=== PATIENT | male | born 1965 | race Caucasian/White ===

== ENCOUNTER 2019-01-24 15:24 | Inpatient (IN) ==
[2019-01-24] MEDS ORDERED: PIPERACILL/TAZOBAC CONSULT ACTIVE PRN (15:51)
[2019-01-24] MEDS ORDERED: PIPERACILLIN/TAZOBACTAM 4.5 GM/120 ML BAG IV ONE (15:51)
[2019-01-24] MEDS ORDERED: VANCOMYCIN HCL 2,750 MG in SODIUM CHLORIDE 0.9% 500 ML IV ONE (15:51)
[2019-01-24] MEDS ORDERED: VANCOMYCIN CONSULT ACTIVE PRN (15:51)
[2019-01-24 16:34] LABS: Basophils # (auto) 0.04 K/uL (0-0.2); Basophils % (auto) 0.7 %; Eosinophils # (auto) 0.12 K/uL (0-0.5); Hemoglobin 12.4 g/dL (14.0-18.0); Immature Granulocytes # (auto) 0.01 K/uL (0.00-0.02); Immature Granulocytes % (auto) 0.2 %; Lymphocytes # (auto) 1.05 K/uL (1.2-3.4); Lymphocytes % (auto) 17.9 %; Mean Corpuscular Hemoglobin 29.8 pg (25-34); Mean Corpuscular Hgb Conc 35.4 g/dL (32-36); Mean Corpuscular Volume 84.1 fL (80-100); Mean Platelet Volume 10.5 fL (7.4-10.4); Monocytes # (auto) 0.23 K/uL (0.11-0.59); Monocytes % (auto) 3.9 %; Neutrophils # (auto) 4.41 K/uL (1.4-6.5); Neutrophils % (auto) 75.3 %; Platelet Count 164 K/uL (130-400); RDW Coefficient of Variation 12.5 % (11.5-14.5); RDW Standard Deviation 38.3 fL (36.4-46.3); Red Blood Count 4.16 M/uL (4.7-6.1); White Blood Count 5.86 K/uL (4.8-10.8)
[2019-01-24 16:43] LABS: INR 1.1 (0.9-1.1); Partial Thromboplastin Time 28.1 Seconds (21.0-31.0); Prothrombin Time 11.1 Seconds (9.0-12.0)
--- NOTE | 2019-01-24 16:47 | XRay Report ---
XR chest 1V portable CLINICAL HISTORY: Sepsis COMPARISON STUDY: Chest radiograph June 08, 2015. FINDINGS: Lung volumes are normal. Lungs are clear. There is no pneumothorax or pleural effusion. Car diomediastinal silhouette is stable. Mediastinal contours are normal. There is no evidence for pulmon dave edema. Mild elevation of the right hemidiaphragm is unchanged. IMPRESSION: No acute cardiopulmonary findings. No change in appearance of the chest. Electronically signed by: Brennen Wright M.D. 01/24/2019 4:46 PM
[2019-01-24 16:51] LABS: Albumin Level 4.2 gm/dl (3.4-5.0); BUN Creatinine Ratio 17.3 (10-20); Calcium 9.1 mg/dl (8.5-10.1); Creatinine Clr Calc Pharmacy 53.3 ml/min; Est GFR (African American) 40.5; Magnesium 1.9 mg/dl (1.8-2.4); Potassium 4.9 mmol/L (3.5-5.1)
[2019-01-24 17:13] LABS: Albumin Globulin Ratio 1.1 (0.9-2); Bilirubin,Total 1.5 mg/dl (0.2-1); Globulin 3.7 gm/dl (2.5-4.0); Phosphorus 2.5 mg/dl (2.5-4.9); Thyroid Stimulating Hormone 1.31 uIu/ml (0.300-4.500); Total Protein 7.9 gm/dl (6.4-8.2)
[2019-01-24] MEDS ORDERED: SODIUM CHLORIDE 0.9% 1000ML 1,000 ML IV ONE (17:23)
[2019-01-24] MEDS ORDERED: SODIUM CHLORIDE 0.9% 1000ML 1,000 ML IV SCH (17:30)
--- NOTE | 2019-01-24 19:20 | History & Physical Report ---
Date of Service January 24, 2019 Assessment & Plan (1) Hypothermia: Admit to PCU on telemetry Vital signs every 4 hours Continue monitoring CBC CMP and replenish electrolytes as necessary Continue fluid hydration with warm normal saline for hypothermia Continue bear hugger until patient temperature is normal Continue Zosyn IV empirically for hypothermia of possible exposure possible infectious. Vancomycin discontinued. Patient received 1 dose in the ER. DVT prophylaxis heparin 5000units every 12 hours. Full code Present on Admission?: Yes (2) CKD (chronic kidney disease), stage III: CKD stage IIIa Continue monitoring creatinine and GFR It is not clear if this is acute on chronic or chronic only CKD Avoid nephrotoxic agents Continue IV fluid hydration for dehydration Present on Admission?: Yes (3) Anemia: Anemia could be related to chronic kidney disease. Iron studies pending Depends on the results of iron studies consider starting iron with vitamin C. We will check B12 and folate as well. Present on Admission?: Yes (4) HTN (hypertension): Stable. Continue amlodipine 10 mg tablets p.o. daily nightly, continue aspirin 81 p.o. daily, continue carvedilol 12.5 mg tablet twice daily. Continue lisinopril 20 mg p.o. every morning. Continue torsemide 10 mg p.o. every morning. Monitor blood pressure every 4 hours. Present on Admission?: Yes (5) DM type 2 (diabetes mellitus, type 2): Continue home medicine. A1c pending. Glycemic control per pharmacy. Present on Admission?: Yes (6) Hyperlipidemia: Fasting lipid panel pending. Continue atorvastatin 40 mg p.o. nightly. Present on Admission?: Yes History of Present Illness Chief Complaint: Hypothermia Primary Care Provider: Akash Donaldson MD Patient is a 54 years old male with past medical history of hypertension, coronary artery disease, hyperlipidemia, CKD stage III diabetes mellitus type 2 who present to the emergency room with a complaint of feeling chills and generalized weakness. Patient was outside whole day long and he said he was sweating and due to low temperature and being for prolonged time outside he believe he was exposed and that is why his temperature on the arrival to the ER was 33 Celsius. Patient does not have any other complaints except for being very cold having chills. Patient denies chest pain, shortness of breath, frequency, urgency, cough, hematemesis, hematuria, or dysuria. Labs are reviewed and white blood cell count is 5.86, hemoglobin 12.4, hematocrit 35, platelets 164, PT 11.1, INR 1.1, APTT 28.1. Resume 138, potassium 4.9, chloride 108, BUN 36, creatinine 2.06, GFR 35, glucose 293, lactate 1.6, total bili 1.5, AST 22 ALT 30 TSH 1.3. Urine analysis pending, BNP pending. Chest x-rays: No acute cardia pulmonary findings. Decision was made to admit patient for hypothermia to PCU telemetry for further evaluation and management. Allergies Allergy/AdvReac Type Severity Reaction Status Date / Time No Known Allergies Allergy Unverified 01/24/19 17:01 Home Medications Home Medications Medication Instructions Recorded Confirmed Type amlodipine 10 mg tablet 10 mg PO HS tab 10/31/18 01/24/19 History aspirin 81 mg tablet,delayed 81 mg PO Q2D tab 10/31/18 01/24/19 History release atorvastatin 40 mg tablet 40 mg PO HS #90 tab 10/31/18 01/24/19 History blood sugar diagnostic strips #10 ea 10/31/18 01/24/19 History carvedilol 12.5 mg tablet 12.5 mg PO BID tab 10/31/18 01/24/19 History cholecalciferol (vitamin D3) 2,000 2,000 units PO QAM #30 cap 10/31/18 01/24/19 History unit capsule lancets 28 gauge #25 ea 10/31/18 01/24/19 History lisinopril 20 mg tablet 20 mg PO QAM #90 tab 10/31/18 01/24/19 History potassium citrate ER 10 mEq (1,080 20 meq PO TID tab 10/31/18 01/24/19 History mg) tablet,extended release torsemide 10 mg tablet 10 mg PO QAM tab 10/31/18 01/24/19 History insulin aspart (U-100) 100 unit/mL 10 unit SQ TID #15 ml 01/20/19 01/24/19 Rx (3 mL) subcutaneous pen pen needle, diabetic 32 gauge x #150 ea 01/20/19 01/24/19 Rx 5/32" insulin degludec [Tresiba 15 units SQ HS 01/24/19 01/24/19 History FlexTouch U-100] Past Med/Surg History Medical History HTN (hypertension) (Chronic) Sepsis (Acute) DM type 2 (diabetes mellitus, type 2) (Chronic) Hyperlipidemia (Chronic) CKD (chronic kidney disease), stage III (Chronic) Family History Other No pertinent family history in first degree relatives Social History Feels Safe at Home: Yes Smoking Status: Never smoker Review of Systems Review of Systems: All systems reviewed & are unremarkable except as noted in HPI & below Physical Exam Constitutional: WD/WN, vitals as above well developed and + obese Hypothermic temperature 33 Celsius Eyes: PERRL, conjunctivae normal, anicteric sclerae ENMT: external ear and nose normal, oropharynx normal Neck: trachea midline, no thyromegaly Respiratory: normal respiratory effort, lungs clear to auscultation Cardiovascular: RRR, no murmur, no edema Gastrointestinal (Abdomen): normal bowel sounds, soft, nontender, no hepatosplenomegaly Musculoskeletal: no cyanosis or clubbing, extremities motor strength 5/5 Skin: no rashes, warm and dry Neurologic: patellar DTR's 2+ bilat, sensation intact Psychiatric: A+Ox3, euthymic affect Lymphatic: no cervical or axillary lymphadenopathy Results & Data Vital Signs (Past 12 Hours) Vital Signs Temp Pulse Pulse Resp BP BP Pulse Ox 01/24/19 18:30 35.6 C L 64 20 119/68 98 01/24/19 17:20 62 18 135/59 L 98 01/24/19 17:19 95 01/24/19 17:17 34.6 C L 01/24/19 15:25 33.5 C L 67 18 109/59 L 98 Code Status & VTE Plan Code Status Full code VTE Prophylaxis Plan VTE Prophylaxis will be ordered: Yes PG Care Time/CCT Total # of Minutes Spent Total Time Spent with Patient: Total time spent is greater than 50% in coordination of care (as documented) at patient's floor/unit and/or counseling patient: (1) Hypothermia Encounter type: initial encounter Qualified Code(s): T68.XXXA - Hypothermia, initial encounter (2) Anemia Anemia type: unspecified type Qualified Code(s): D64.9 - Anemia, unspecified
[2019-01-24 20:38] LABS: Appearance Urine Clear (Clear); Bilirubin Urine Negative (Negative); Blood Urine Negative (Negative); Color Urine Yellow; Glucose Urine UA 3+ (Negative); Ketones Urine Negative (Negative); Leukocyte Esterase Urine Negative (Negative); Nitrite Urine Negative (Negative); Protein Urine Negative (Negative); Specific Gravity Urine 1.022 (1.000-1.030); Urobilinogen Urine Negative (Negative)
--- NOTE | 2019-01-24 21:10 | Emergency Department Note ---
Entered by Margarita Sargent acting as a scribe for Carlton Prince MD History of Present Illness General Chief complaint: Illness Stated complaint: WEAKNESS, DIZZY Time Seen by Provider: 01/24/19 15:44 Source: patient History of Present Illness Onset (ago): hour(s) (this morning) Location: head (general) Pain Consistency: + other (persistent) Quality: + other (chills) Associated symptoms: + other (negative leg swelling; negative difficulties with bowel movements and urination); no cough, no fever/chills (positive chills) and no nausea/vomiting The patient is a 54 year old white male w/ PMHx of HTN, Type 2 diabetes, and CKD stage III who presents to the ED w/ CC of persistent chills beginning this morning. He states that he has some left-sided chest pain. The patient's states that the patient was outside all day so far today and his clothes were wet. Per the patient's , the patient had an episode of sweating which was believed to be due to taking his Novolog that he began last week. The patient's denies fever, cough, nausea, vomiting, leg swelling, and difficulties with bowel movements and urination. The patient denies any recent antibiotic use. He states that he has been taking his medications. Home Medications Home Medications Medication Instructions Recorded Confirmed Type amlodipine 10 mg tablet 10 mg PO HS tab 10/31/18 01/24/19 History aspirin 81 mg tablet,delayed 81 mg PO Q2D tab 10/31/18 01/24/19 History release atorvastatin 40 mg tablet 40 mg PO HS #90 tab 10/31/18 01/24/19 History blood sugar diagnostic strips #10 ea 10/31/18 01/24/19 History carvedilol 12.5 mg tablet 12.5 mg PO BID tab 10/31/18 01/24/19 History cholecalciferol (vitamin D3) 2,000 2,000 units PO QAM #30 cap 10/31/18 01/24/19 History unit capsule lancets 28 gauge #25 ea 10/31/18 01/24/19 History lisinopril 20 mg tablet 20 mg PO QAM #90 tab 10/31/18 01/24/19 History potassium citrate ER 10 mEq (1,080 20 meq PO TID tab 10/31/18 01/24/19 History mg) tablet,extended release torsemide 10 mg tablet 10 mg PO QAM tab 10/31/18 01/24/19 History insulin aspart (U-100) 100 unit/mL 10 unit SQ TID #15 ml 01/20/19 01/24/19 Rx (3 mL) subcutaneous pen pen needle, diabetic 32 gauge x #150 ea 01/20/19 01/24/19 Rx " insulin degludec [Tresiba 15 units SQ HS 01/24/19 01/24/19 History FlexTouch U-100] Allergies Allergy/AdvReac Type Severity Reaction Status Date / Time No Known Allergies Allergy Unverified 01/24/19 17:01 Past Med/Surg History Medical History HTN (hypertension) (Chronic) Sepsis (Acute) DM type 2 (diabetes mellitus, type 2) (Chronic) Hyperlipidemia (Chronic) CKD (chronic kidney disease), stage III (Chronic) Family History Other No pertinent family history in first degree relatives Social History Preferred Language: Armenian Communication Ability: Effective Paratransit Driver Required: No Beliefs That Will Affect Care: None Current Living Situation: Family Feels Safe at Home: Yes Smoking Status: Current every day smoker Tobacco Type: smokeless tobacco ; Second Hand Exposure: No ; Hx Alcohol Use: Yes Alcohol type: beer, wine and hard liquor Hx Substance Use: No Review of Systems See HPI for pertinent positives & negatives. and A total of 10 systems reviewed and were otherwise negative Physical Exam Vital Signs Vital Signs - 24 hr 01/24/19 15:25 01/24/19 17:17 01/24/19 17:19 Temperature 33.5 C L 34.6 C L Temperature Source Rectal Rectal Sepsis Recent Fever Within 48 Hours No Sepsis New/Unexplained Change in Mental Status No Sepsis Action Taken by Nursing No Action Required Pulse Rate 67 Pulse Rate [Left] Pulse Rhythm [Left] Respiratory Rate 18 Respiratory Effort / Characteristics Non-Labored Respiratory Depth Normal Respiratory Pattern Regular Blood Pressure 109/59 L Blood Pressure [Left Arm] Blood Pressure Mean 75 Blood Pressure Mean [Left Arm] Pulse Oximetry 98 95 Oxygen Delivery Method Room Air Room Air 01/24/19 17:20 01/24/19 18:30 Temperature 35.6 C L Temperature Source Rectal Sepsis Recent Fever Within 48 Hours Sepsis New/Unexplained Change in Mental Status Sepsis Action Taken by Nursing Pulse Rate Pulse Rate [Left] 62 64 Pulse Rhythm [Left] Regular Respiratory Rate 18 20 Respiratory Effort / Characteristics Non-Labored Non-Labored Respiratory Depth Normal Normal Respiratory Pattern Regular Regular Blood Pressure Blood Pressure [Left Arm] 135/59 L 119/68 Blood Pressure Mean Blood Pressure Mean [Left Arm] 84 85 Pulse Oximetry 98 98 Oxygen Delivery Method Room Air Room Air GENERAL: Well nourished, non-toxic. Rigors noted. EYE EXAM: Normal conjunctiva. PERRL, no anisocoria and EOM's grossly intact w/o pain. OROPHARYNX: Moist mucus membranes. Grossly normal dentition. NECK: Supple, no nuchal rigidity, no adenopathy, non-tender. no signs of meningismus. LUNGS: Clear to auscultation. Normal chest wall mechanics. HEART: NSR, no MRG. ABDOMEN: Abdomen soft, non-tender, normo-active bowel sounds, no masses, no rebound or guarding. BACK: No CVA TTP. SKIN: No rashes and no bruising. UPPER EXTREMITIES: Upper extremities are grossly normal. LOWER EXTREMITIES: No pitting edema. No calf pain. NEURO EXAM: A&O x3, cranial nerves II-XII grossly intact, normal speech, moves all 4 extremities on command w/o issue. Course 1547: Past medical records reviewed. The patient was evaluated in room C10. A complete history and physical exam was performed. 1820: I discussed the case with Dr. [facility] Hospitalist who accepts the patient for further evaluation. Administered Medications Sodium Chloride (Nss 1000ml) 1,000 mls @ 250 mls/hr IV .Q4H LOS Stop: 02/23/19 17:29 Last Admin: 01/24/19 17:45 Dose: 250 mls/hr Documented by: [id number] Discontinued Medications Vancomycin HCl 2,750 mg/ (Sodium Chloride) 555 mls @ 200 mls/hr IV NOW ONE Stop: 01/24/19 18:37 Last Infusion: 01/24/19 20:34 Dose: 0 mls/hr Documented by: [id number] Admin: 01/24/19 17:45 Dose: 200 mls/hr Documented by: [id number] Piperacillin Sod/Tazobactam Sod (Zosyn) 4.5 gm in 120 mls @ 240 mls/hr IV NOW ONE Stop: 01/24/19 16:20 Last Infusion: 01/24/19 17:22 Dose: 0 mls/hr Documented by: [id number] Admin: 01/24/19 16:50 Dose: 240 mls/hr Documented by: [id number] Sodium Chloride (Nss 1000ml) 1,000 mls @ 999 mls/hr IV .Q1H1M ONE Stop: 01/24/19 18:23 Last Infusion: 01/24/19 17:40 Dose: 0 mls/hr Documented by: [id number] Admin: 01/24/19 16:40 Dose: 999 mls/hr Documented by: [id number] Medical Decision Making Medical Records Attestation: I reviewed the patient's medical records. Home Medications Current Medication List: was personally reviewed by me Laboratory Data Attestation: I reviewed the patient's lab results. Result diagrams: 01/24/19 16:10 01/24/19 16:10 Lab Results 01/24/19 01/24/19 01/24/19 Range/Units 16:00 16:10 16:10 WBC 5.86 (4.8-10.8) K/uL RBC 4.16 L (4.7-6.1) M/uL Hgb 12.4 L (14.0-18.0) g/dL Hct 35.0 L (42-52) % MCV 84.1 (80-100) fL MCH 29.8 (25-34) pg MCHC 35.4 (32-36) g/dL RDW Std Deviation 38.3 (36.4-46.3) fL RDW Coeff of Sebastián 12.5 (11.5-14.5) % Plt Count 164 (130-400) K/uL MPV 10.5 H (7.4-10.4) fL Immature Gran % (Auto) 0.2 % Neut % (Auto) 75.3 % Lymph % (Auto) 17.9 % Trego % (Auto) 3.9 % Eos % (Auto) 2.0 % Baso % (Auto) 0.7 % Immature Gran # (Auto) 0.01 (0.00-0.02) K/uL Neut # (Auto) 4.41 (1.4-6.5) K/uL Lymph # (Auto) 1.05 L (1.2-3.4) K/uL Trego # (Auto) 0.23 (0.11-0.59) K/uL Eos # (Auto) 0.12 (0-0.5) K/uL Baso # (Auto) 0.04 (0-0.2) K/uL PT 11.1 (9.0-12.0) Seconds INR 1.1 (0.9-1.1) APTT 28.1 (21.0-31.0) Seconds PTT Ratio 1.0 Sodium (136-145) mmol/L Potassium (3.5-5.1) mmol/L Chloride (98-107) mmol/L Carbon Dioxide (21-32) mmol/L Anion Gap (3-11) BUN (7-18) mg/dl Creatinine (0.6-1.4) mg/dl Est Cr Clr Drug Dosing ml/min Est GFR ( Amer) Est GFR (Non-Af Amer) BUN/Creatinine Ratio (10-20) Glucose (70-99) mg/dl Lactate (0.4-2.0) mmol/L Calcium (8.5-10.1) mg/dl Phosphorus (2.5-4.9) mg/dl Magnesium (1.8-2.4) mg/dl Total Bilirubin (0.2-1) mg/dl AST (15-37) U/L ALT (12-78) U/L Alkaline Phosphatase (45-117) U/L Total Protein (6.4-8.2) gm/dl Albumin (3.4-5.0) gm/dl Globulin (2.5-4.0) gm/dl Albumin/Globulin Ratio (0.9-2) Procalcitonin < 0.05 (0-0.5) ng/ml TSH (0.300-4.500) uIu/ml 01/24/19 01/24/19 Range/Units 16:10 16:10 WBC (4.8-10.8) K/uL RBC (4.7-6.1) M/uL Hgb (14.0-18.0) g/dL Hct (42-52) % MCV (80-100) fL MCH (25-34) pg MCHC (32-36) g/dL RDW Std Deviation (36.4-46.3) fL RDW Coeff of Sebastián (11.5-14.5) % Plt Count (130-400) K/uL MPV (7.4-10.4) fL Immature Gran % (Auto) % Neut % (Auto) % Lymph % (Auto) % Trego % (Auto) % Eos % (Auto) % Baso % (Auto) % Immature Gran # (Auto) (0.00-0.02) K/uL Neut # (Auto) (1.4-6.5) K/uL Lymph # (Auto) (1.2-3.4) K/uL Trego # (Auto) (0.11-0.59) K/uL Eos # (Auto) (0-0.5) K/uL Baso # (Auto) (0-0.2) K/uL PT (9.0-12.0) Seconds INR (0.9-1.1) APTT (21.0-31.0) Seconds PTT Ratio Sodium 138 (136-145) mmol/L Potassium 4.9 (3.5-5.1) mmol/L Chloride 108 H (98-107) mmol/L Carbon Dioxide 24 (21-32) mmol/L Anion Gap 6.0 (3-11) BUN 36 H (7-18) mg/dl Creatinine 2.06 H (0.6-1.4) mg/dl Est Cr Clr Drug Dosing 53.3 ml/min Est GFR ( Amer) 40.5 Est GFR (Non-Af Amer) 35.0 BUN/Creatinine Ratio 17.3 (10-20) Glucose 293 H (70-99) mg/dl Lactate 1.6 (0.4-2.0) mmol/L Calcium 9.1 (8.5-10.1) mg/dl Phosphorus 2.5 (2.5-4.9) mg/dl Magnesium 1.9 (1.8-2.4) mg/dl Total Bilirubin 1.5 H (0.2-1) mg/dl AST 22 (15-37) U/L ALT 30 (12-78) U/L Alkaline Phosphatase 81 (45-117) U/L Total Protein 7.9 (6.4-8.2) gm/dl Albumin 4.2 (3.4-5.0) gm/dl Globulin 3.7 (2.5-4.0) gm/dl Albumin/Globulin Ratio 1.1 (0.9-2) Procalcitonin (0-0.5) ng/ml TSH 1.310 (0.300-4.500) uIu/ml Imaging Data Radiologist's Impression: Radiology results as stated below per my review and the radiologist's interpretation: XR chest 1V portable CLINICAL HISTORY: Sepsis COMPARISON STUDY: Chest radiograph June 08, 2015. FINDINGS: Lung volumes are normal. Lungs are clear. There is no pneumothorax or pleural effusion. Cardiomediastinal silhouette is stable. Mediastinal contours are normal. There is no evidence for pulmonary edema. Mild elevation of the right hemidiaphragm is unchanged. IMPRESSION: No acute cardiopulmonary findings. No change in appearance of the chest. Electronically signed by: Brennen Wright M.D. 01/24/2019 4:46 PM ECG Data Attestation: I personally reviewed and interpreted this ECG as follows: Indication: other (hypothermia) Rate (beats per minute): 59 Rhythm: sinus bradycardia Findings: + 1st degree AV block, + PVC, + Q waves (in aVF) and + left axis deviation Comparison ECG Date: from (10/30/14) Change: no significant change Blood Pressure Blood Pressure Findings: Elevated blood pressure Blood Pressure Disposition: further management by hospitalist YANNA Narrative The patient is a 54 year old white male w/ PMHx of HTN, Type 2 diabetes, and CKD stage III who presents to the ED w/ CC of persistent chills beginning this morning. Differential diagnosis: Etiologies such as viral syndrome, environmental exposure, severe hypothyroidism, otitis, pharyngitis, pneumonia, influenza, meningitis, urinary tract infection, sepsis, bacteremia, as well as others were entertained. Patient was seen and evaluated the bedside. The patient was complaining of chills. Patient does have rigors and was hypothermic on exam. The patient did have blood work completed lactate as well as blood and urine cultures. Urinalysis was also obtained along with an EKG. Patient's initial EKG shows questionable A. fib but no history of A. fib. Will reassess once the patient has less chills and rigors. Patient has normal white count. Trace anemia was present along with CKD which appears essentially baseline. Glucose is elevated but the patient is not gapped and the patient does not have a low bicarb. Not DKA. The patient's lactate is not elevated. The patient's pro-Jerzy is not eleva demetrius urinalysis is negative. Given that the patient likely had an exposure as the patient has been outdoors been wet is probably most likely cause but as he is currently not normothermic I believe he would benefit from observation at this time. Patient was admitted to the medicine service. Patient was counseled on tobacco cessation. I counseled patient on tobacco cessation for 5 minutes. Treatment options discussed and resources provided. Patient was not receptive. Impression & Plan Hypothermia, CKD (chronic kidney disease), stage III, Anemia, Environmental exposure Discharge Plan Visit Data *Final* Discharge Date/Time: 01/24/19 19:53 Chief Complaint: Illness Stated Complaint: WEAKNESS, DIZZY ED Provider: Carlton Prince Discharge Problem: Hypothermia, CKD (chronic kidney disease), stage III, Anemia, Environmental exposure Patient Disposition: Admitted As Inpatient Discharge Instructions Interventions: ED Discharge Assessment Last Done: 01/24/19 19:53 Discharge Problem: Hypothermia Qualifiers: Encounter type: initial encounter Qualified Code(s): T68.XXXA - Hypothermia, initial encounter Anemia Qualifiers: Anemia type: unspecified type Qualified Code(s): D64.9 - Anemia, unspecified The scribe's documentation has been prepared under my direction and personally reviewed by me in its entirety. I confirm that the note above accurately reflects all work, treatment, procedures, and medical decision making performed by me.
[2019-01-24] MEDS ORDERED: ALUMINUM/MAGNESIUM SUSP 30 ML UDC PO PRN (21:16)
[2019-01-24] MEDS ORDERED: DEXTROSE 50% 50 ML SYRINGE IV PRN (21:16)
[2019-01-24] MEDS ORDERED: MAGNESIUM HYDROXIDE SUSP 30 ML UDC PO PRN (21:16)
[2019-01-24] MEDS ORDERED: GLUCOSE 10 TABS/TUBE PO PRN (21:16)
[2019-01-24] MEDS ORDERED: ASPIRIN 81 MG ECTAB PO SCH (21:16)
[2019-01-24] MEDS ORDERED: ACETAMINOPHEN 325 MG TAB PO PRN (21:16)
[2019-01-24] MEDS ORDERED: ZOLPIDEM TARTRATE 5 MG TAB PO PRN (21:16)
[2019-01-24] MEDS ORDERED: ONDANSETRON INJ 2 MG/ML 2 ML VIAL IV PRN (21:16)
[2019-01-24] MEDS ORDERED: GLUCAGON FOR INJ 1 MG VIAL SQ PRN (21:16)
[2019-01-24] MEDS ORDERED: GLUCOSE 40% GEL 15 GM TUBE PO PRN (21:16)
[2019-01-24] MEDS ORDERED: POLYETHYLENE (MIRALAX) 17 GM PACK PO PRN (21:16)
[2019-01-24] MEDS ORDERED: CARBOHYDRATES FOR HYPOGLYCEMIA PO PRN (21:16)
[2019-01-24] MEDS ORDERED: PHARMACY GLYCEMIC MGMT CONSULT PRN (21:21)
[2019-01-24] MEDS: SODIUM CHLORIDE 0.9% 1000ML 1,000 ML IV SCH (21:36)
[2019-01-24] MEDS ORDERED: INSULIN GLARGINE SOLOSTAR 100 UNITS/ML 3 ML PEN SC SCH (22:00)
[2019-01-24] MEDS: ATORVASTATIN 40 MG TAB PO SCH (22:00)
[2019-01-24] MEDS: POTASSIUM CITRATE 10 MEQ TAB PO SCH (22:00)
[2019-01-24] MEDS: HEPARIN SOD 5,000 UNIT/0.5 ML VIAL SQ SCH (22:01)
[2019-01-24] MEDS: AMLODIPINE BESYLATE 5 MG TAB PO SCH (22:01)
[2019-01-24] MEDS: PIPERACILLIN/TAZOBACTAM 4.5 GM in DEXTROSE 5% 100 ML IV SCH (22:03)
[2019-01-24] MEDS: INSULIN ASPART 100 UNITS/ML 3 ML PEN SQ SCH (22:03)
[2019-01-25] MEDS ORDERED: INSULIN ASPART 100 UNITS/ML 3 ML PEN SQ SCH (02:00)
[2019-01-25] MEDS: PIPERACILLIN/TAZOBACTAM 4.5 GM in DEXTROSE 5% 100 ML IV SCH ×3 (06:06→21:43)
[2019-01-25 06:46] LABS: Basophils # (auto) 0.02 K/uL (0-0.2); Basophils % (auto) 0.4 %; Eosinophils % (auto) 5.4 %; Hematocrit (blood only) 31.1 % (42-52); Hemoglobin 10.7 g/dL (14.0-18.0); Immature Granulocytes # (auto) 0.01 K/uL (0.00-0.02); Immature Granulocytes % (auto) 0.2 %; Lymphocytes # (auto) 1.58 K/uL (1.2-3.4); Lymphocytes % (auto) 28.6 %; Mean Corpuscular Hemoglobin 29.7 pg (25-34); Mean Corpuscular Hgb Conc 34.4 g/dL (32-36); Mean Corpuscular Volume 86.4 fL (80-100); Mean Platelet Volume 10.5 fL (7.4-10.4); Monocytes # (auto) 0.57 K/uL (0.11-0.59); Monocytes % (auto) 10.3 %; Neutrophils # (auto) 3.04 K/uL (1.4-6.5); Neutrophils % (auto) 55.1 %; Platelet Count 150 K/uL (130-400); RDW Coefficient of Variation 12.8 % (11.5-14.5); RDW Standard Deviation 40.6 fL (36.4-46.3); White Blood Count 5.52 K/uL (4.8-10.8)
[2019-01-25 06:55] LABS: Estimated Average Glucose 240 mg/dl
[2019-01-25 07:24] LABS: Albumin Level 3.2 gm/dl (3.4-5.0); BUN Creatinine Ratio 14.8 (10-20); Calcium 8.3 mg/dl (8.5-10.1); Creatinine Clr Calc Pharmacy 55.9 ml/min; Est GFR (African American) 43.3; Est GFR (Non-African American) 37.4; Potassium 4.1 mmol/L (3.5-5.1)
[2019-01-25 07:27] LABS: Bilirubin,Total 1.4 mg/dl (0.2-1); Globulin 3.1 gm/dl (2.5-4.0); Total Protein 6.3 gm/dl (6.4-8.2)
[2019-01-25] MEDS: INSULIN ASPART 100 UNITS/ML 3 ML PEN SQ SCH ×4 (07:44→20:44)
[2019-01-25] MEDS: HEPARIN SOD 5,000 UNIT/0.5 ML VIAL SQ SCH ×2 (07:45→20:46)
[2019-01-25] MEDS: CHOLECALCIFEROL 1,000 UNITS TAB PO SCH (07:47)
[2019-01-25] MEDS: TORSEMIDE 10 MG TAB PO SCH (07:47)
[2019-01-25] MEDS: POTASSIUM CITRATE 10 MEQ TAB PO SCH ×3 (07:47→20:45)
[2019-01-25] MEDS: lisinopriL 20 MG TAB PO SCH (08:16)
[2019-01-25] MEDS ORDERED: carvediloL 12.5 MG TAB PO SCH (09:00)
--- NOTE | 2019-01-25 09:51 | Cardiology Consultation ---
Date of Consultation January 25, 2019 Assessment & Plan (1) DM type 2 (diabetes mellitus, type 2): (2) CKD (chronic kidney disease), stage III: (3) Anemia: (4) Hypothermia: (5) Bradycardia: The patient's hemoglobin A1c on admission is 10, so I do not believe that his diabetes is cared for well. It is possible that he could have been hypoglycemic but other causes should be considered. In regard to his bradycardia, he is on carvedilol and I will reduce the dosage. He should have cardiac troponins and an echocardiogram is warranted. History of Present Illness Attending Physician: Cesar Ann MD History of Present Illness This is a 54-year-old male patient with history of obesity, diabetes, stage III kidney disease and hypertension. Yesterday he was helping a suze paint the outside keith of a garage. He had several episodes of what he describes as chills, sweating and just not feeling well. He had a similar episode that occurred while he was in [place] at which time he had low blood glucose levels. He ate a candy bar and then went over to [facility] and got a hot dog. He still did not feel well and felt like his vision was off. He decided to go to [facility] and then was transferred here. After admission he has been feeling well. On the monitor however, his heart rates especially while he is sleeping down into the 30 bpm range. I been asked to see this patient for bradycardia. He has no prior history of heart disease and denies myocardial infarction, angina or congestive heart failure. He has had no syncope or presyncope other than the symptoms he had on the day of admission. He denies activity related chest pain or shortness of breath. Allergies Allergy/AdvReac Type Severity Reaction Status Date / Time No Known Allergies Allergy Unverified 01/24/19 17:01 Home Medications Home Medications Medication Instructions Recorded Confirmed Type amlodipine 10 mg tablet 10 mg PO HS tab 10/31/18 01/24/19 History aspirin 81 mg tablet,delayed 81 mg PO Q2D tab 10/31/18 01/24/19 History release atorvastatin 40 mg tablet 40 mg PO HS #90 tab 10/31/18 01/24/19 History blood sugar diagnostic strips #10 ea 10/31/18 01/24/19 History carvedilol 12.5 mg tablet 12.5 mg PO BID tab 10/31/18 01/24/19 History cholecalciferol (vitamin D3) 2,000 2,000 units PO QAM #30 cap 10/31/18 01/24/19 History unit capsule lancets 28 gauge #25 ea 10/31/18 01/24/19 History lisinopril 20 mg tablet 20 mg PO QAM #90 tab 10/31/18 01/24/19 History potassium citrate ER 10 mEq (1,080 20 meq PO TID tab 10/31/18 01/24/19 History mg) tablet,extended release torsemide 10 mg tablet 10 mg PO QAM tab 10/31/18 01/24/19 History insulin aspart (U-100) 100 unit/mL 10 unit SQ TID #15 ml 01/20/19 01/24/19 Rx (3 mL) subcutaneous pen pen needle, diabetic 32 gauge x #150 ea 01/20/19 01/24/19 Rx 5/32" insulin degludec [Tresiba 15 units SQ HS 01/24/19 01/24/19 History FlexTouch U-100] Patient History Medical History HTN (hypertension) (Chronic) Sepsis (Acute) DM type 2 (diabetes mellitus, type 2) (Chronic) Hyperlipidemia (Chronic) CKD (chronic kidney disease), stage III (Chronic) Family History Other No pertinent family history in first degree relatives Social History Preferred Language: Indonesian Communication Ability: Effective Director Talent Acquisition Required: No Beliefs That Will Affect Care: None Current Living Situation: Family Feels Safe at Home: Yes Smoking Status: Current every day smoker Tobacco Type: smokeless tobacco ; Second Hand Exposure: No ; Hx Alcohol Use: Yes Alcohol type: beer, wine and hard liquor Hx Substance Use: No Review of Systems Review of Systems: All systems reviewed & are unremarkable except as noted in HPI & below Nothing additional to add. Physical Exam Physical Exam: General: no acute distress and stated age Head: normocephalic, no masses, lesions, tenderness or abnormalities Eyes: conjunctiva are pink and non-injected, sclera clear Neck: supple, no adenopathy, no bruits, normal jugular venous pulse, no hepatojugular reflux Chest: normal shape and normal respiratory effort Lungs: clear to auscultation and percussion Cardiac Exam: - regular rate & rhythm, no murmurs gallops or rubs - normal S1, normal S2 Pulses: 2(+) throughout Abdomen: abdomen soft, non-tender, no abnormal masses and no hepatosplenomegaly Musculoskeletal: no gait disturbance, no joint inflammation, no deforming arthritis Extremities: no edema and no cyanosis Neuro: grossly normal exam Results & Data Vital Signs (Past 12 Hours) Vital Signs Temp Pulse Pulse Resp BP Pulse Ox 01/25/19 08:00 60 01/25/19 07:40 36.9 C 64 19 131/59 L 95 01/25/19 04:17 36.8 C 52 L 16 133/70 99 01/24/19 23:23 36.7 C 64 17 158/77 H 98 Laboratory Results Laboratory Results - last 24 hr 01/24/19 01/24/19 01/24/19 16:00 16:00 16:10 WBC 5.86 RBC 4.16 L Hgb 12.4 L Hct 35.0 L MCV 84.1 MCH 29.8 MCHC 35.4 RDW Std Deviation 38.3 RDW Coeff of [place] 12.5 Plt Count 164 MPV 10.5 H Immature Gran % (Auto) 0.2 Neut % (Auto) 75.3 Lymph % (Auto) 17.9 [place] % (Auto) 3.9 Eos % (Auto) 2.0 Baso % (Auto) 0.7 Immature Gran # (Auto) 0.01 Neut # (Auto) 4.41 Lymph # (Auto) 1.05 L [place] # (Auto) 0.23 Eos # (Auto) 0.12 Baso # (Auto) 0.04 PT INR APTT PTT Ratio Sodium Potassium Chloride Carbon Dioxide Anion Gap BUN Creatinine Est Cr Clr Drug Dosing Est GFR ( Amer) Est GFR (Non-Af Amer) BUN/Creatinine Ratio Glucose POC Glucose Estimat Average Glucose Hemoglobin A1c Lactate Calcium Phosphorus Magnesium Total Bilirubin AST ALT Alkaline Phosphatase NT-Pro-B Natriuret Pep Total Protein Albumin Globulin Albumin/Globulin Ratio Triglycerides Cholesterol LDL Cholesterol, Calc VLDL Cholesterol, Calc HDL Cholesterol Cholesterol/HDL Ratio Procalcitonin < 0.05 TSH Urine Color Urine Appearance Urine pH Ur Specific [place] Urine Protein Urine Glucose (UA) Urine Ketones Urine Blood Urine Nitrite Urine Bilirubin Urine Urobilinogen Ur Leukocyte Esterase Hepatitis C Ab Screen Neg 01/24/19 01/24/19 01/24/19 16:10 16:10 16:10 WBC RBC Hgb Hct MCV MCH MCHC RDW Std Deviation RDW Coeff of [place] Plt Count MPV Immature Gran % (Auto) Neut % (Auto) Lymph % (Auto) [place] % (Auto) Eos % (Auto) Baso % (Auto) Immature Gran # (Auto) Neut # (Auto) Lymph # (Auto) [place] # (Auto) Eos # (Auto) Baso # (Auto) PT 11.1 INR 1.1 APTT 28.1 PTT Ratio 1.0 Sodium 138 Potassium 4.9 Chloride 108 H Carbon Dioxide 24 Anion Gap 6.0 BUN 36 H Creatinine 2.06 H Est Cr Clr Drug Dosing 53.3 Est GFR ( Amer) 40.5 Est GFR (Non-Af Amer) 35.0 BUN/Creatinine Ratio 17.3 Glucose 293 H POC Glucose Estimat Average Glucose Hemoglobin A1c Lactate 1.6 Calcium 9.1 Phosphorus 2.5 Magnesium 1.9 Total Bilirubin 1.5 H AST 22 ALT 30 Alkaline Phosphatase 81 NT-Pro-B Natriuret Pep Total Protein 7.9 Albumin 4.2 Globulin 3.7 Albumin/Globulin Ratio 1.1 Triglycerides Cholesterol LDL Cholesterol, Calc VLDL Cholesterol, Calc HDL Cholesterol Cholesterol/HDL Ratio Procalcitonin TSH 1.310 Urine Color Urine Appearance Urine pH Ur Specific [place] Urine Protein Urine Glucose (UA) Urine Ketones Urine Blood Urine Nitrite Urine Bilirubin Urine Urobilinogen Ur Leukocyte Esterase Hepatitis C Ab Screen 01/24/19 01/24/19 01/24/19 16:10 20:16 20:33 WBC RBC Hgb Hct MCV MCH MCHC RDW Std Deviation RDW Coeff of [place] Plt Count MPV Immature Gran % (Auto) Neut % (Auto) Lymph % (Auto) [place] % (Auto) Eos % (Auto) Baso % (Auto) Immature Gran # (Auto) Neut # (Auto) Lymph # (Auto) [place] # (Auto) Eos # (Auto) Baso # (Auto) PT INR APTT PTT Ratio Sodium Potassium Chloride Carbon Dioxide Anion Gap BUN Creatinine Est Cr Clr Drug Dosing Est GFR ( Amer) Est GFR (Non-Af Amer) BUN/Creatinine Ratio Glucose POC Glucose 322 H* Estimat Average Glucose Hemoglobin A1c Lactate Calcium Phosphorus Magnesium Total Bilirubin AST ALT Alkaline Phosphatase NT-Pro-B Natriuret Pep 164 Total Protein Albumin Globulin Albumin/Globulin Ratio Triglycerides Cholesterol LDL Cholesterol, Calc VLDL Cholesterol, Calc HDL Cholesterol Cholesterol/HDL Ratio Procalcitonin TSH Urine Color Yellow Urine Appearance Clear Urine pH 5.0 Ur Specific [place] 1.022 Urine Protein Negative Urine Glucose (UA) 3+ H Urine Ketones Negative Urine Blood Negative Urine Nitrite Negative Urine Bilirubin Negative Urine Urobilinogen Negative Ur Leukocyte Esterase Negative Hepatitis C Ab Screen 01/25/19 01/25/19 01/25/19 00:41 02:03 06:14 WBC 5.52 RBC 3.60 L Hgb 10.7 L Hct 31.1 L MCV 86.4 MCH 29.7 MCHC 34.4 RDW Std Deviation 40.6 RDW Coeff of [place] 12.8 Plt Count 150 MPV 10.5 H Immature Gran % (Auto) 0.2 Neut % (Auto) 55.1 Lymph % (Auto) 28.6 [place] % (Auto) 10.3 Eos % (Auto) 5.4 Baso % (Auto) 0.4 Immature Gran # (Auto) 0.01 Neut # (Auto) 3.04 Lymph # (Auto) 1.58 [place] # (Auto) 0.57 Eos # (Auto) 0.30 Baso # (Auto) 0.02 PT INR APTT PTT Ratio Sodium Potassium Chloride Carbon Dioxide Anion Gap BUN Creatinine Est Cr Clr Drug Dosing Est GFR ( Amer) Est GFR (Non-Af Amer) BUN/Creatinine Ratio Glucose POC Glucose 206 H 202 H Estimat Average Glucose Hemoglobin A1c Lactate Calcium Phosphorus Magnesium Total Bilirubin AST ALT Alkaline Phosphatase NT-Pro-B Natriuret Pep Total Protein Albumin Globulin Albumin/Globulin Ratio Triglycerides Cholesterol LDL Cholesterol, Calc VLDL Cholesterol, Calc HDL Cholesterol Cholesterol/HDL Ratio Procalcitonin TSH Urine Color Urine Appearance Urine pH Ur Specific [place] Urine Protein Urine Glucose (UA) Urine Ketones Urine Blood Urine Nitrite Urine Bilirubin Urine Urobilinogen Ur Leukocyte Esterase Hepatitis C Ab Screen 01/25/19 01/25/19 01/25/19 06:14 06:14 06:16 WBC RBC Hgb Hct MCV MCH MCHC RDW Std Deviation RDW Coeff of [place] Plt Count MPV Immature Gran % (Auto) Neut % (Auto) Lymph % (Auto) [place] % (Auto) Eos % (Auto) Baso % (Auto) Immature Gran # (Auto) Neut # (Auto) Lymph # (Auto) [place] # (Auto) Eos # (Auto) Baso # (Auto) PT INR APTT PTT Ratio Sodium 143 Potassium 4.1 D Chloride 115 H Carbon Dioxide 21 Anion Gap 7.0 BUN 29 H Creatinine 1.95 H Est Cr Clr Drug Dosing 55.9 Est GFR ( Amer) 43.3 Est GFR (Non-Af Amer) 37.4 BUN/Creatinine Ratio 14.8 Glucose 101 H POC Glucose 106 H Estimat Average Glucose 240 Hemoglobin A1c 10.0 H Lactate Calcium 8.3 L Phosphorus Magnesium Total Bilirubin 1.4 H AST 15 ALT 23 Alkaline Phosphatase 60 NT-Pro-B Natriuret Pep Total Protein 6.3 L D Albumin 3.2 L Globulin 3.1 Albumin/Globulin Ratio 1.0 Triglycerides 72 Cholesterol 108 LDL Cholesterol, Calc 46 VLDL Cholesterol, Calc 14 HDL Cholesterol 48 Cholesterol/HDL Ratio 2 Procalcitonin TSH Urine Color Urine Appearance Urine pH Ur Specific [place] Urine Protein Urine Glucose (UA) Urine Ketones Urine Blood Urine Nitrite Urine Bilirubin Urine Urobilinogen Ur Leukocyte Esterase Hepatitis C Ab Screen 01/25/19 07:27 WBC RBC Hgb Hct MCV MCH MCHC RDW Std Deviation RDW Coeff of [place] Plt Count MPV Immature Gran % (Auto) Neut % (Auto) Lymph % (Auto) [place] % (Auto) Eos % (Auto) Baso % (Auto) Immature Gran # (Auto) Neut # (Auto) Lymph # (Auto) [place] # (Auto) Eos # (Auto) Baso # (Auto) PT INR APTT PTT Ratio Sodium Potassium Chloride Carbon Dioxide Anion Gap BUN Creatinine Est Cr Clr Drug Dosing Est GFR ( Amer) Est GFR (Non-Af Amer) BUN/Creatinine Ratio Glucose POC Glucose 111 H Estimat Average Glucose Hemoglobin A1c Lactate Calcium Phosphorus Magnesium Total Bilirubin AST ALT Alkaline Phosphatase NT-Pro-B Natriuret Pep Total Protein Albumin Globulin Albumin/Globulin Ratio Triglycerides Cholesterol LDL Cholesterol, Calc VLDL Cholesterol, Calc HDL Cholesterol Cholesterol/HDL Ratio Procalcitonin TSH Urine Color Urine Appearance Urine pH Ur Specific [place] Urine Protein Urine Glucose (UA) Urine Ketones Urine Blood Urine Nitrite Urine Bilirubin Urine Urobilinogen Ur Leukocyte Esterase Hepatitis C Ab Screen Medications Administered Current Inpatient Medications Acetaminophen (Tylenol) 650 mg PO Q4H PRN PRN Reason: Pain or Fever Stop: 02/23/19 21:15 Al Hydrox/Mg Hydrox/Simethicone (Maalox) 15 ml PO Q4H PRN PRN Reason: Dyspepsia Stop: 02/23/19 21:15 Amlodipine Besylate (Norvasc) 10 mg PO HS LOS Stop: 02/25/19 09:00 Last Admin: 01/24/19 22:01 Dose: 10 mg Documented by: Aspirin (Ecotrin Ectab) 81 mg PO Q2D LOS Stop: 02/23/19 21:15 Last Admin: 01/24/19 22:00 Dose: 81 mg Documented by: Atorvastatin Calcium (Lipitor) 40 mg PO HS LOS Stop: 02/23/19 21:15 Last Admin: 01/24/19 22:00 Dose: 40 mg Documented by: Carvedilol (Coreg) 6.25 mg PO BID LOS Stop: 02/24/19 20:59 Dextrose (Dextrose 50%) 25 - 50 ml IV UD PRN; Protocol PRN Reason: Hypoglycemia Protocol Stop: 02/23/19 21:15 Glucagon (Glucagen) 1 mg SQ UD PRN; Protocol PRN Reason: Hypoglycemia Protocol Stop: 02/23/19 21:15 Glucose (Glucose 40%) 15 - 30 gm PO UD PRN; Protocol PRN Reason: Hypoglycemia Protocol Stop: 02/23/19 21:15 Glucose (Dex4 Glucose) 4 - 8 tabs PO UD PRN; Protocol PRN Reason: Hypoglycemia Protocol Stop: 02/23/19 21:15 Heparin Sodium (Porcine) (Heparin Sodium (Porcine)) 5,000 units SQ Q12 LOS Stop: 02/23/19 21:59 Last Admin: 01/25/19 07:45 Dose: 5,000 units Documented by: Sodium Chloride (Nss 1000ml) 1,000 mls @ 80 mls/hr IV .[id number] LOS Stop: 02/23/19 21:15 Last Admin: 01/24/19 21:36 Dose: 80 mls/hr Documented by: Piperacillin Sod/Tazobactam (Sod 4.5 gm/ Dextrose) 120 mls @ 30 mls/hr IV Q8H LOS; Protocol Stop: 01/26/19 21:59 Last Admin: 01/25/19 06:06 Dose: 30 mls/hr Documented by: Insulin Aspart (Novolog Flexpen) 0 units SQ ACHS LOS Stop: 02/23/19 21:59 Last Admin: 01/25/19 07:44 Dose: 4 units Documented by: Insulin Glargine (Lantus Solostar Pen) 20 units SC HS LOS; Protocol Stop: 02/23/19 21:59 Last Admin: 01/24/19 22:02 Dose: 20 units Documented by: Lisinopril (Zestril) 20 mg PO QAM [facility] Stop: 02/24/19 08:59 Last Admin: 01/25/19 08:16 Dose: 20 mg Documented by: Magnesium Hydroxide (Milk Of Magnesia) 30 ml PO Q12H PRN PRN Reason: Constipation Stop: 02/23/19 21:15 Miscellaneous (Carbohydrates For Hypoglycemia) 15 - 30 gm PO UD PRN PRN Reason: Hypoglycemia Treatment Stop: 02/23/19 21:15 Miscellaneous Information (Consult) 1 ea N/A UD PRN PRN Reason: Consult Stop: 02/23/19 15:50 Miscellaneous Information (Consult Glycemic Management Pharmacy) 1 ea N/A UD PRN; Protocol PRN Reason: Consult Stop: 02/23/19 21:20 Ondansetron HCl (Zofran) 4 mg IV Q6H PRN PRN Reason: Nausea Stop: 02/23/19 21:15 Polyethylene Glycol (Miralax Powder Packet) 17 gm PO DAILY PRN PRN Reason: Constipation Stop: 02/23/19 21:15 Potassium Citrate (Urocit-K) 20 meq PO TID [facility] Stop: 02/23/19 21:15 Last Admin: 01/25/19 07:47 Dose: 20 meq Documented by: Torsemide (Demadex) 10 mg PO QAM [facility] Stop: 02/24/19 08:59 Last Admin: 01/25/19 07:47 Dose: 10 mg Documented by: Vitamin D (Vitamin D3) 2,000 units PO QAM [facility] Stop: 02/24/19 08:59 Last Admin: 01/25/19 07:47 Dose: 2,000 units Documented by: Zolpidem Tartrate (Ambien) 2.5 mg PO HS PRN PRN Reason: Sleep Stop: 02/23/19 21:15 (1) Anemia Anemia type: unspecified type Qualified Code(s): D64.9 - Anemia, unspecified (2) Hypothermia Encounter type: initial encounter Qualified Code(s): T68.XXXA - Hypothermia, initial encounter
[2019-01-25] MEDS: SODIUM CHLORIDE 0.9% 1000ML 1,000 ML IV SCH (11:49)
--- NOTE | 2019-01-25 13:13 | Pharmacy Report ---
Glycemic Control Consultation - Date of Service January 25, 2019 - Scope Scope: Glycemic Pharmacist consulted by Dr Marquez on 01/24 for glycemic control and to write orders per [facility] inpatient glycemic control protocol - Objective Weight: 117.3 kg Accuchecks BSG (last 24hrs): 01/24/19 01/24/19 01/25/19 16:10 20:33 00:41 Glucose 293 H POC Glucose 322 H* 206 H 01/25/19 01/25/19 01/25/19 02:03 06:14 06:16 Glucose 101 H POC Glucose 202 H 106 H 01/25/19 01/25/19 07:27 11:20 Glucose POC Glucose 111 H 137 H Laboratory Data (last 24hrs): 01/24/19 01/25/19 16:10 06:14 Potassium 4.9 4.1 D Carbon Dioxide 24 21 Anion Gap 6.0 7.0 Creatinine 2.06 H 1.95 H Est Cr Clr Drug Dosing 53.3 55.9 HbA1c: Hemoglobin A1c 10.0 % (4.5-5.6) H 01/25/19 06:14 - Recent Pertinent Medications Outpatient Anti-diabetic Regimen: * Tresiba 15 units qHS * Novolog 10 units with meals * A1c = 10 % 01/25/19 The patient is currently receiving: * Basal insulin: Lantus 20 units every 24 hours * Correctional Insulin: Novolog Correction per scale ACHS Goal Range: Low 110 mg/dL - High 150 mg/dL Correction Factor: 20 mg/dL/unit * Prandial insulin: Per carb ratio of 1 unit per 7 grams CHO consumed Risk Factors for Insulin Resistance: * Infection: * Diet: T2DM - Assessment & Plan Assessment & Plan: ASSESSMENT: * 54 y/o male admitted for hypothermia. He has a history of T2DM, uncontrolled as per A1c. He is managed with basal + bolus insulin as an outpatient, which were substituted with Lantus + Novolog as an inpatient. * BSGs came down nicely since admission. Est TDD ~30-40 units/day. PLAN FOR INPATIENT GLYCEMIC CONTROL: * Basal insulin - provide scale for lower dose if BSGs remain low * Lantus qHS per the following scale: * 15 units for BSG < 110 mg/dL * 20 units for BSG 110 mg/dL or above * Bolus insulin - loosen parameters slightly * NovoLog per scale ACHS or Q6hrs while NPO * Goal Range: Low 110 mg/dL - High 150 mg/dL * Correction Factor: 25 mg/dL/unit * Nutritional / Prandial insulin per carb ratio of 1 unit per 9 grams CHO consumed Discharge Recommendations: * A1c = 10% on 01/25/19 * Goal A1c < 7% based on age/comorbidities * Will need to determine compliance prior to making recommendations for dosage adjustments Thank you.
--- NOTE | 2019-01-25 15:00 | Hospitalist Progress Note ---
Date of Service January 25, 2019 Assessment & Plan (1) Bradycardia: Bradycardia Hypothermia--Resolved Unclear etiology DD: Hypoglycemic episode CXR:No acute cardiopulmonary findings. No change in appearance of the chest. Cardiac enzymes x2 Negative Normal procalcitonin, lactate levels, TSH Carvedilol dose decreased to 6.25 mg twice daily Pacer pads at bedside Echo pending Appreciate cardiology input Monitoring telemetry Received gentle IV fluids Empirically on IV Zosyn Blood cultures pending CKD stage III Creatinine at baseline Avoid nephrotoxic agents as able Monitor renal function DM II Hb A1C: 10.0 Monitor for hypoglycemia Continue ISS, basal Insulin Anemia of chronic kidney disease No bleeding issues Monitor CBC HTN Stable Continue lisinopril, amlodipine Carvedilol dose decreased due to bradycardia Hyperlipidemia Continue atorvastatin DVT Px: Heparin SQ Code Status Full Code Disposition Expect to discharge home when stable Subjective Patient is seen and examined at bedside Diaphoresis, chills, dizziness resolved Denies any chest pain, shortness of breath, nausea, abdominal pain, cough Bradycardic on monitor earlier today Offers no other complaints at this time Review of Systems Review of Systems: All systems reviewed & are unremarkable except as noted in HPI & below Physical Exam Physical Exam: Physical Exam: Vitals signs as noted above General Appearance:Moderately built and nourished, no apparent distress Head: normocephalic, Atraumatic Eyes: normal inspection, EOMI Neck: supple, Trachea midline Respiratory/Chest: Normal breath sounds, CTA Cardiovascular: S1, S2, No murmur, +Bradycardia Abdomen/GI:Soft, Non tender, Bowel sounds present Extremities/Musculoskelatal:normal inspection, no edema Neurologic/Psych:AAOX3, grossly no focal neurological deficits Skin: normal color, warm Results & Data Vital Signs (Past 12 Hours) Vital Signs Temp Pulse Pulse Resp BP Pulse Ox 01/25/19 11:25 36.5 C 47 L 16 132/56 L 95 01/25/19 08:00 60 01/25/19 07:40 36.9 C 64 19 131/59 L 95 01/25/19 04:17 36.8 C 52 L 16 133/70 99 Laboratory Results Short CBC 01/24/19 01/25/19 Range/Units 16:10 06:14 WBC 5.86 5.52 (4.8-10.8) K/uL Hgb 12.4 L 10.7 L (14.0-18.0) g/dL Hct 35.0 L 31.1 L (42-52) % Plt Count 164 150 (130-400) K/uL BMP 01/24/19 01/25/19 16:10 06:14 Sodium 138 143 Potassium 4.9 4.1 D Chloride 108 H 115 H Carbon Dioxide 24 21 BUN 36 H 29 H Creatinine 2.06 H 1.95 H Glucose 293 H 101 H Calcium 9.1 8.3 L Cardiac Enzymes 01/25/19 01/25/19 Range/Units 06:14 11:50 Troponin I < 0.015 < 0.015 (0-0.045) ng/ml Liver Function 01/24/19 01/25/19 Range/Units 16:10 06:14 Total Bilirubin 1.5 H 1.4 H (0.2-1) mg/dl AST 22 15 (15-37) U/L ALT 30 23 (12-78) U/L Alkaline Phosphatase 81 60 (45-117) U/L Albumin 4.2 3.2 L (3.4-5.0) gm/dl Urine 01/24/19 Range/Units 20:16 Urine Color Yellow Urine Appearance Clear (Clear) Urine pH 5.0 (4.5-7.5) Ur Specific [place] 1.022 (1.000-1.030) Urine Protein Negative (Negative) Urine Glucose (UA) 3+ H (Negative)
[2019-01-25] MEDS: carvediloL 6.25 MG TAB PO SCH (20:44)
[2019-01-25] MEDS: AMLODIPINE BESYLATE 5 MG TAB PO SCH (20:44)
[2019-01-25] MEDS: ATORVASTATIN 40 MG TAB PO SCH (20:44)
[2019-01-25] MEDS ORDERED: INSULIN GLARGINE SOLOSTAR 100 UNITS/ML 3 ML PEN SC SCH (21:00)
[2019-01-26 06:15] LABS: Basophils # (auto) 0.04 K/uL (0-0.2); Basophils % (auto) 0.8 %; Eosinophils % (auto) 7.7 %; Hemoglobin 11.9 g/dL (14.0-18.0); Immature Granulocytes # (auto) 0.01 K/uL (0.00-0.02); Immature Granulocytes % (auto) 0.2 %; Lymphocytes # (auto) 1.84 K/uL (1.2-3.4); Lymphocytes % (auto) 35.2 %; Mean Corpuscular Hemoglobin 29.6 pg (25-34); Mean Corpuscular Volume 87.1 fL (80-100); Mean Platelet Volume 10.6 fL (7.4-10.4); Monocytes # (auto) 0.52 K/uL (0.11-0.59); Neutrophils # (auto) 2.41 K/uL (1.4-6.5); Neutrophils % (auto) 46.1 %; Platelet Count 144 K/uL (130-400); RDW Coefficient of Variation 12.8 % (11.5-14.5); Red Blood Count 4.02 M/uL (4.7-6.1); White Blood Count 5.22 K/uL (4.8-10.8)
[2019-01-26] MEDS: PIPERACILLIN/TAZOBACTAM 4.5 GM in DEXTROSE 5% 100 ML IV SCH (06:38)
[2019-01-26 06:42] LABS: Potassium 4.6 mmol/L (3.5-5.1)
[2019-01-26 06:43] LABS: Albumin Level 3.4 gm/dl (3.4-5.0); BUN Creatinine Ratio 12.9 (10-20); Calcium 8.9 mg/dl (8.5-10.1); Creatinine Clr Calc Pharmacy 54.1 ml/min; Est GFR (Non-African American) 36.2; Magnesium 1.7 mg/dl (1.8-2.4)
[2019-01-26 06:45] LABS: Bilirubin,Total 1.9 mg/dl (0.2-1); Globulin 3.3 gm/dl (2.5-4.0); Total Protein 6.7 gm/dl (6.4-8.2)
[2019-01-26] MEDS ORDERED: MAGNESIUM SULFATE / D5W 1 GM/100 ML BAG IV ONE (08:15)
[2019-01-26] MEDS: TORSEMIDE 10 MG TAB PO SCH (08:37)
[2019-01-26] MEDS: CHOLECALCIFEROL 1,000 UNITS TAB PO SCH (08:37)
[2019-01-26] MEDS: lisinopriL 20 MG TAB PO SCH (08:37)
[2019-01-26] MEDS: carvediloL 6.25 MG TAB PO SCH (08:38)
[2019-01-26] MEDS: HEPARIN SOD 5,000 UNIT/0.5 ML VIAL SQ SCH (08:38)
[2019-01-26] MEDS: INSULIN ASPART 100 UNITS/ML 3 ML PEN SQ SCH ×2 (08:39→12:04)
[2019-01-26] MEDS: POTASSIUM CITRATE 10 MEQ TAB PO SCH (08:39)
--- NOTE | 2019-01-26 10:03 | Cardiology Progress Note ---
Date of Service January 26, 2019 Assessment & Plan (1) DM type 2 (diabetes mellitus, type 2): (2) CKD (chronic kidney disease), stage III: (3) Anemia: (4) Hypothermia: (5) Bradycardia: The patient informs me that just earlier in the week he was started on insulin for his diabetes due to hemoglobin A1c of 10. I think it is likely that he had hypoglycemia due to the medication change. From a cardiac standpoint I believe he can be discharged home. He should follow-up with his primary care physician for further control of his diabetes. Subjective No new cardiac complaints today. The patient feels well and wants to go home. Review of Systems Review of Systems: All systems reviewed & are unremarkable except as noted in HPI & below Nothing additional. Physical Exam Physical Exam: General: no acute distress and stated age Head: normocephalic, no masses, lesions, tenderness or abnormalities Eyes: conjunctiva are pink and non-injected, sclera clear Neck: supple, no adenopathy, no bruits, normal jugular venous pulse, no hepatojugular reflux Chest: normal shape and normal respiratory effort Lungs: clear to auscultation and percussion Cardiac Exam: - regular rate & rhythm, no murmurs gallops or rubs - normal S1, normal S2 Pulses: 2(+) throughout Abdomen: abdomen soft, non-tender, no abnormal masses and no hepatosplenomegaly Musculoskeletal: no gait disturbance, no joint inflammation, no deforming arthritis Extremities: no edema and no cyanosis Neuro: grossly normal exam Results & Data Vital Signs (Past 12 Hours) Vital Signs Temp Pulse Resp BP Pulse Ox 01/26/19 07:20 36.7 C 54 L 16 135/66 93 01/26/19 03:44 36.5 C 64 16 119/64 92 01/25/19 23:13 36.6 C 54 L 16 122/56 L 94 Laboratory Results Laboratory Results - last 24 hr 01/25/19 01/25/19 01/25/19 06:14 11:20 11:50 WBC RBC Hgb Hct MCV MCH MCHC RDW Std Deviation RDW Coeff of Sebastián Plt Count MPV Immature Gran % (Auto) Neut % (Auto) Lymph % (Auto) [place] % (Auto) Eos % (Auto) Baso % (Auto) Immature Gran # (Auto) Neut # (Auto) Lymph # (Auto) [place] # (Auto) Eos # (Auto) Baso # (Auto) Sodium Potassium Chloride Carbon Dioxide Anion Gap BUN Creatinine Est Cr Clr Drug Dosing Est GFR ( Amer) Est GFR (Non-Af Amer) BUN/Creatinine Ratio Glucose POC Glucose 137 H Calcium Magnesium Total Bilirubin AST ALT Alkaline Phosphatase Troponin I < 0.015 < 0.015 Total Protein Albumin Globulin Albumin/Globulin Ratio 01/25/19 01/25/19 01/26/19 16:15 20:10 05:57 WBC RBC Hgb Hct MCV MCH MCHC RDW Std Deviation RDW Coeff of Sebastián Plt Count MPV Immature Gran % (Auto) Neut % (Auto) Lymph % (Auto) [place] % (Auto) Eos % (Auto) Baso % (Auto) Immature Gran # (Auto) Neut # (Auto) Lymph # (Auto) [place] # (Auto) Eos # (Auto) Baso # (Auto) Sodium 142 Potassium 4.6 Chloride 113 H Carbon Dioxide 23 Anion Gap 6.0 BUN 26 H Creatinine 2.00 H Est Cr Clr Drug Dosing 54.1 Est GFR ( Amer) 42.0 Est GFR (Non-Af Amer) 36.2 BUN/Creatinine Ratio 12.9 Glucose 131 H POC Glucose 126 H 152 H Calcium 8.9 Magnesium 1.7 L Total Bilirubin 1.9 H AST 12 L ALT 23 Alkaline Phosphatase 64 Troponin I Total Protein 6.7 Albumin 3.4 Globulin 3.3 Albumin/Globulin Ratio 1.0 01/26/19 01/26/19 05:57 07:09 WBC 5.22 RBC 4.02 L Hgb 11.9 L Hct 35.0 L MCV 87.1 MCH 29.6 MCHC 34.0 RDW Std Deviation 41.0 RDW Coeff of Sebastián 12.8 Plt Count 144 MPV 10.6 H Immature Gran % (Auto) 0.2 Neut % (Auto) 46.1 Lymph % (Auto) 35.2 [place] % (Auto) 10.0 Eos % (Auto) 7.7 Baso % (Auto) 0.8 Immature Gran # (Auto) 0.01 Neut # (Auto) 2.41 Lymph # (Auto) 1.84 [place] # (Auto) 0.52 Eos # (Auto) 0.40 Baso # (Auto) 0.04 Sodium Potassium Chloride Carbon Dioxide Anion Gap BUN Creatinine Est Cr Clr Drug Dosing Est GFR ( Amer) Est GFR (Non-Af Amer) BUN/Creatinine Ratio Glucose POC Glucose 129 H Calcium Magnesium Total Bilirubin AST ALT Alkaline Phosphatase Troponin I Total Protein Albumin Globulin Albumin/Globulin Ratio Diagnostic Findings Echocardiogram showed normal LV function and no significant valvular pathology. Medications Administered Current Inpatient Medications Acetaminophen (Tylenol) 650 mg PO Q4H PRN PRN Reason: Pain or Fever Stop: 02/23/19 21:15 Al Hydrox/Mg Hydrox/Simethicone (Maalox) 15 ml PO Q4H PRN PRN Reason: Dyspepsia Stop: 02/23/19 21:15 Amlodipine Besylate (Norvasc) 10 mg PO HS LOS Stop: 02/25/19 09:00 Last Admin: 01/25/19 20:44 Dose: 10 mg Documented by: Aspirin (Ecotrin Ectab) 81 mg PO Q2D LOS Stop: 02/23/19 21:15 Last Admin: 01/24/19 22:00 Dose: 81 mg Documented by: Atorvastatin Calcium (Lipitor) 40 mg PO HS LOS Stop: 02/23/19 21:15 Last Admin: 01/25/19 20:44 Dose: 40 mg Documented by: Carvedilol (Coreg) 6.25 mg PO BID LOS Stop: 02/24/19 20:59 Last Admin: 01/26/19 08:38 Dose: 6.25 mg Documented by: Dextrose (Dextrose 50%) 25 - 50 ml IV UD PRN; Protocol PRN Reason: Hypoglycemia Protocol Stop: 02/23/19 21:15 Glucagon (Glucagen) 1 mg SQ UD PRN; Protocol PRN Reason: Hypoglycemia Protocol Stop: 02/23/19 21:15 Glucose (Glucose 40%) 15 - 30 gm PO UD PRN; Protocol PRN Reason: Hypoglycemia Protocol Stop: 02/23/19 21:15 Glucose (Dex4 Glucose) 4 - 8 tabs PO UD PRN; Protocol PRN Reason: Hypoglycemia Protocol Stop: 02/23/19 21:15 Heparin Sodium (Porcine) (Heparin Sodium (Porcine)) 5,000 units SQ Q12 LOS Stop: 02/23/19 21:59 Last Admin: 01/26/19 08:38 Dose: 5,000 units Documented by: Piperacillin Sod/Tazobactam (Sod 4.5 gm/ Dextrose) 120 mls @ 30 mls/hr IV Q8H LOS; Protocol Stop: 01/26/19 21:59 Last Admin: 01/26/19 06:38 Dose: 30 mls/hr Documented by: Insulin Aspart (Novolog Flexpen) 0 units SQ ACHS [facility] Stop: 02/23/19 21:59 Last Admin: 01/26/19 08:39 Dose: 5 units Documented by: Insulin Glargine (Lantus Solostar Pen) 0 units SC HS [facility]; Protocol Stop: 02/24/19 20:59 Last Admin: 01/25/19 20:50 Dose: 20 units Documented by: Lisinopril (Zestril) 20 mg PO QAM [facility] Stop: 02/24/19 08:59 Last Admin: 01/26/19 08:37 Dose: 20 mg Documented by: Magnesium Hydroxide (Milk Of Magnesia) 30 ml PO Q12H PRN PRN Reason: Constipation Stop: 02/23/19 21:15 Miscellaneous (Carbohydrates For Hypoglycemia) 15 - 30 gm PO UD PRN PRN Reason: Hypoglycemia Treatment Stop: 02/23/19 21:15 Miscellaneous Information (Consult) 1 ea N/A UD PRN PRN Reason: Consult Stop: 02/23/19 15:50 Miscellaneous Information (Consult Glycemic Management Pharmacy) 1 ea N/A UD PRN; Protocol PRN Reason: Consult Stop: 02/23/19 21:20 Ondansetron HCl (Zofran) 4 mg IV Q6H PRN PRN Reason: Nausea Stop: 02/23/19 21:15 Polyethylene Glycol (Miralax Powder Packet) 17 gm PO DAILY PRN PRN Reason: Constipation Stop: 02/23/19 21:15 Potassium Citrate (Urocit-K) 20 meq PO TID [facility] Stop: 02/23/19 21:15 Last Admin: 01/26/19 08:39 Dose: Not Given Documented by: Torsemide (Demadex) 10 mg PO QAM [facility] Stop: 02/24/19 08:59 Last Admin: 01/26/19 08:37 Dose: 10 mg Documented by: Vitamin D (Vitamin D3) 2,000 units PO QAM [facility] Stop: 02/24/19 08:59 Last Admin: 01/26/19 08:37 Dose: 2,000 units Documented by: Zolpidem Tartrate (Ambien) 2.5 mg PO HS PRN PRN Reason: Sleep Stop: 02/23/19 21:15 (1) Anemia Anemia type: unspecified type Qualified Code(s): D64.9 - Anemia, unspecified (2) Hypothermia Encounter type: initial encounter Qualified Code(s): T68.XXXA - Hypothermia, initial encounter
--- NOTE | 2019-01-26 11:59 | Hospitalist Progress Note ---
Date of Service January 26, 2019 Assessment & Plan (1) Bradycardia: Bradycardia Hypothermia--Resolved Unclear etiology DD: Hypoglycemic episode CXR:No acute cardiopulmonary findings. No change in appearance of the chest. Cardiac enzymes x2 Negative Normal procalcitonin, lactate levels, TSH Carvedilol dose decreased to 6.25 mg twice daily Pacer pads at bedside ECHO: Mild LVH, EF: 50-55%, left atrium dilated, No significant valvular pathology Appreciate cardiology input Monitor in telemetry Received gentle IV fluids Discontinue IV Zosyn Blood cultures: Negative to date No obvious source of infection CKD stage III Creatinine at baseline Avoid nephrotoxic agents as able Monitor renal function DM II Hb A1C: 10.0 Monitor for hypoglycemia Continue ISS, basal Insulin Advised to check BGs at home to monitor for hypoglycemia Anemia of chronic kidney disease No bleeding issues Monitor CBC HTN Stable Continue lisinopril, amlodipine Carvedilol dose decreased due to bradycardia Hyperlipidemia Continue atorvastatin DVT Px: Heparin SQ Code Status Full Code Disposition Plan to discharge Home today Subjective Patient is seen and examined at bedside Doing well today Offers no complaints Denies any chest pain, shortness of breath, nausea, abdominal pain Plan to be discharged home today Review of Systems Review of Systems: All systems reviewed & are unremarkable except as noted in HPI & below Physical Exam Physical Exam: Physical Exam: Vitals signs as noted above General Appearance:Moderately built and nourished, no apparent distress Head: normocephalic, Atraumatic Eyes: normal inspection, EOMI Neck: supple, Trachea midline Respiratory/Chest: Normal breath sounds, CTA Cardiovascular: S1, S2, No murmur Abdomen/GI:Soft, Non tender, Bowel sounds present Extremities/Musculoskelatal:normal inspection, no edema Neurologic/Psych:AAOX3, grossly no focal neurological deficits Skin: normal color, warm Results & Data Vital Signs (Past 12 Hours) Vital Signs Temp Pulse Resp BP Pulse Ox 01/26/19 07:20 36.7 C 54 L 16 135/66 93 01/26/19 03:44 36.5 C 64 16 119/64 92 Laboratory Results Short CBC 01/26/19 Range/Units 05:57 WBC 5.22 (4.8-10.8) K/uL Hgb 11.9 L (14.0-18.0) g/dL Hct 35.0 L (42-52) % Plt Count 144 (130-400) K/uL BMP 01/26/19 05:57 Sodium 142 Potassium 4.6 Chloride 113 H Carbon Dioxide 23 BUN 26 H Creatinine 2.00 H Glucose 131 H Calcium 8.9 Cardiac Enzymes 01/25/19 Range/Units 11:50 Troponin I < 0.015 (0-0.045) ng/ml Liver Function 01/26/19 Range/Units 05:57 Total Bilirubin 1.9 H (0.2-1) mg/dl AST 12 L (15-37) U/L ALT 23 (12-78) U/L Alkaline Phosphatase 64 (45-117) U/L Albumin 3.4 (3.4-5.0) gm/dl
--- NOTE | 2019-01-26 12:05 | Discharge Summary ---
Date of Service January 26, 2019 Admission HPI Per Admitting Provider Patient is a 54 years old male with past medical history of hypertension, coronary artery disease, hyperlipidemia, CKD stage III diabetes mellitus type 2 who present to the emergency room with a complaint of feeling chills and generalized weakness. Patient was outside whole day long and he said he was sweating and due to low temperature and being for prolonged time outside he believe he was exposed and that is why his temperature on the arrival to the ER was 33 Celsius. Patient does not have any other complaints except for being very cold having chills. Patient denies chest pain, shortness of breath, freque ncy, urgency, cough, hematemesis, hematuria, or dysuria. Labs are reviewed and white blood cell count is 5.86, hemoglobin 12.4, hematocrit 35, platelets 164, PT 11.1, INR 1.1, APTT 28.1. Resume 138, potassium 4.9, chloride 108, BUN 36, creatinine 2.06, GFR 35, glucose 293, lactate 1.6, total bili 1.5, AST 22 ALT 30 TSH 1.3. Urine analysis pending, BNP pending. Chest x-rays: No acute cardia pulmonary findings. Decision was made to admit patient for hypothermia to PCU telemetry for further evaluation and management. Admission Exam Per Admitting Provider Constitutional: WD/WN, vitals as above well developed and + obese Hypothermic temperature 33 Celsius Eyes: PERRL, conjunctivae normal, anicteric sclerae ENMT: external ear and nose normal, oropharynx normal Neck: trachea midline, no thyromegaly Respiratory: normal respiratory effort, lungs clear to auscultation Cardiovascular: RRR, no murmur, no edema Gastrointestinal (Abdomen): normal bowel sounds, soft, nontender, no hepatosplenomegaly Musculoskeletal: no cyanosis or clubbing, extremities motor strength 5/5 Skin: no rashes, warm and dry Neurologic: patellar DTR's 2+ bilat, sensation intact Psychiatric: A+Ox3, euthymic affect Lymphatic: no cervical or axillary lymphadenopathy Principal Diagnosis Hypothermia Bradycardia Discharge Data Allergies Allergy/AdvReac Type Severity Reaction Status Date / Time No Known Allergies Allergy Unverified 01/24/19 17:01 Consultations 01/24/19 18:20 ED Decision to Admit Stat 01/25/19 08:11 Consult Cardiology Routine Procedures Performed CXR: No acute cardiopulmonary findings. No change in appearance of the chest. ECHO: Mild LVH, EF: 50-55%, left atrium dilated, No significant valvular pathology Hospital Course (1) Bradycardia: Bradycardia Hypothermia--Resolved Unclear etiology DD: Hypoglycemic episode CXR:No acute cardiopulmonary findings. No change in appearance of the chest. Cardiac enzymes x2 Negative Normal procalcitonin, lactate levels, TSH Carvedilol dose decreased to 6.25 mg twice daily Pacer pads at bedside ECHO: Mild LVH, EF: 50-55%, left atrium dilated, No significant valvular pathology Appreciate cardiology input Monitor in telemetry Received gentle IV fluids Discontinue IV Zosyn Blood cultures: Negative to date No obvious source of infection CKD stage III Creatinine at baseline Avoid nephrotoxic agents as able Monitor renal function DM II Hb A1C: 10.0 Monitor for hypoglycemia Continue ISS, basal Insulin Advised to check BGs at home to monitor for hypoglycemia Anemia of chronic kidney disease No bleeding issues Monitor CBC HTN Stable Continue lisinopril, amlodipine Carvedilol dose decreased due to bradycardia Hyperlipidemia Continue atorvastatin DVT Px: Heparin SQ Code Status Full Code Disposition Plan to discharge Home today Total Time Total Time Spent Total Time Spent (In Minutes): 36 minutes Total Time Includes: Examination of the Patient, Discharge Planning, Medication Reconciliation, Communication With Other Providers and Other Discharge Plan Discharge Items Patient Disposition: Home - Self-Care Reason For Visit: HYPOTERMIA Discharge Diagnosis: Hypothermia Bradycardia Activity: Resume your previous activity Exercise/Sports: Gradually increase as tolerated Non-emergency contact: Primary Care Provider Call non-emergency contact if: you have any medication questions, your symptoms worsen, your pain is not controlled, your pain is worsening, your pain is unusual for you, your pain is concerning for you and you have a fever Follow-up/Referrals: Akash Donaldson MD [Primary Care Provider] - Diet: Carb Consistent or DM2 and Heart Healthy Addtl Attending Provider Instructions: Follow-up with your primary care physician Dr. Brenner in 1 week as advised Medication changes Your carvedilol dose is decreased to 6.25 mg twice a day secondary to low heart rate Monitor your blood glucose levels frequently as advised and discussed with your physician for further adjustment of your insulin therapy Seek immediate medical attention if your symptoms reoccur or worsen Pending Studies at Discharge: No Stand-Alone Forms: My [facility], Smoking Cessation Medications and DC Order Prescriptions: New carvedilol 6.25 mg Tablet 6.25 mg PO BID Qty: 60 RF: 1 Continued Novolog Flexpen U-100 Insulin 100 unit/mL (3 mL) insulin pen 10 unit SQ TID Qty: 15 RF: 5 pen needle, diabetic [BD Ultra-Fine Marilyn Pen Needle] 32 gauge x 5/32" needle [id number] .MEDSUPPLY Qty: 150 RF: 5 Accu-Chek Kala Plus test strp strip .ROUTE .MEDSUPPLY Qty: 10 RF: 0 amlodipine 10 mg tablet 10 mg PO HS RF: 0 aspirin 81 mg tablet,delayed release (DR/EC) 81 mg PO Q2D RF: 0 atorvastatin 40 mg tablet 40 mg PO HS Qty: 90 RF: 0 lisinopril 20 mg tablet 20 mg PO QAM Qty: 90 RF: 0 lancets [Laimoon.comTouch SureSoft Lancing Dev] 28 gauge misc .ROUTE .MEDSUPPLY Qty: 25 RF: 0 potassium citrate 10 mEq (1,080 mg) tablet extended release 20 meq PO TID RF: 0 torsemide 10 mg tablet 10 mg PO QAM RF: 0 cholecalciferol (vitamin D3) 2,000 unit capsule 2,000 units PO QAM Qty: 30 RF: 0 Tresiba FlexTouch U-100 100 unit/mL (3 mL) insulin pen 20 units SQ HS RF: 0 Discontinued carvedilol 12.5 mg tablet 12.5 mg PO BID RF: 0 Discharge Orders: Discharge Order (Routine); Ordered 01/26/19 Ordered By: Cesar Ann Admission Data Admit Date/Time: 01/24/19 18:51 Attending Provider: Cesar Ann Admit Provider: Natalio Marquez Primary Care Provider: Akash Donaldson Other Providers: Natalio Marquez ; Philippe Kaplan
== END 2019-01-26 13:49 | disposition home or self-care (01) | DRG 923 ==
LOC: ED 15:24 → SUATTDRO 18:51 → 2E 18:51

== ENCOUNTER 2022-05-06 11:55 | Observation (INO) ==
[2022-05-06] MEDS ORDERED: SODIUM CHLORIDE 0.9% 1000ML 1,000 ML IV ONE (12:18)
--- NOTE | 2022-05-06 12:22 | Emergency Department Note ---
Impression & Plan Acute appendicitis ED Provider Note CHIEF COMPLAINT: Right lower quadrant abdominal pain HISTORY OF PRESENT ILLNESS: This 57-year-old male patient presents to the emergency department with complaints of lower quadrant abdominal pain that began intermittently yesterday. This morning the patient has had more severe pain that intensifies with any movement. He has not eaten much in the last 24 hours, denies any vomiting. He did have a loose bowel movement yesterday which is the usual for him. He denies any blood in the stools. Patient has had no fever or coughing. He does have a remote history of kidney stones but states this feels quite differently. He states he is a type II diabetic with Charcot foot and hypertension. REVIEW OF SYSTEMS: A review of systems was performed with positives and pertinent negatives listed in the history of present illness. 10 systems were reviewed and are otherwise negative. ALLERGIES: see below MEDICATIONS: see below PMH: see below SOCIAL HISTORY: see below DDx: Appendicitis, testicular torsion, infections, diverticulitis, UTI, ob struction, mesenteric ischemia, aortic pathology, inflammatory bowel disease, renal colic, PUD, pancreatitis, biliary pathology, hernia, volvulus, constipation, as well as other pathologies. PHYSICAL EXAM: Vital signs reviewed. General: Generally well-appearing 57-year-old male, in some discomfort HEENT: No scleral icterus, PERRLA, neck supple. Atraumatic. Cardiovascular: Regular rate and rhythm, no extra sounds. Pulmonary: Clear to auscultation bilaterally, normal work of breathing. Abdomen: Soft, obese, tender to palpation in the right lower quadrant with rebound and guarding, nondistended, positive bowel sounds. Musculoskeletal: Atraumatic, no peripheral edema. Neurologic: Patient awake alert and oriented x 3 Skin: Warm, dry, no rash EMERGENCY DEPARTMENT COURSE/MDM: This patient was evaluated and appeared to be in no significant distress. IV access was obtained and laboratory work was drawn. The patient was medicated with IV Zofran and hydrated with normal saline solution. CT imaging of the abdomen pelvis was performed and is consistent with an acute appendicitis per radiology. The case was discussed with Dr. Harris of general surgery who has requested IV Zosyn which was ordered. Dr. Harris plans to take the patient to the operating room for definitive management. Patient and his were made aware of the plan and agreed. MONITORING: An order for cardiac monitoring was placed and the patient is noted to be in a sinus at 61 beats per minute. RADIOLOGY: CT of the abdomen pelvis to my review is consistent with an acute appendicitis, otherwise deferred to radiology DISPOSITION: Admission/OR Past Med/Surg History Medical History CKD (chronic kidney disease), stage III Diabetic peripheral neuropathy associated with type 2 diabetes mellitus DM type 2 (diabetes mellitus, type 2) HTN (hypertension) Hyperlipidemia Loss of protective sensation of skin of foot Surgical History H/O cataract removal with insertion of prosthetic lens H/O skin graft Family History Other No pertinent family history in first degree relatives Social History Smoking Status: Current every day smoker Tobacco Type: Smokeless Tobacco (Dip or Chew) Second Hand Exposure: No; Hx Alcohol Use: No Hx Substance Use: No Preferred Language: Urdu Communication Ability: Effective Visual Impairment: No Limitations Hearing Ability: Normal Mold Stamper And Repairer Required: No Beliefs That Will Affect Care: None Current Living Situation: Family Current Living Situation Comment: brother and sister in law current occupational status: disabled Feels Safe at Home: Yes caffeine: No Assistive Devices: Denture - Upper and Denture - Lower Allergies Allergies Allergy/AdvReac Type Severity Reaction Status Date / Time No Known Allergies Allergy Verified 05/06/22 15:36 Home Meds Home Medications Medication Instructions Recorded Confirmed amlodipine 10 mg tablet 10 mg PO HS 10/31/18 05/06/22 aspirin 81 mg tablet,delayed 81 mg PO Q2D 10/31/18 05/06/22 release cholecalciferol (vitamin D3) 50 2,000 units PO QAM #30 caps 10/31/18 05/06/22 mcg (2,000 unit) capsule lancets 28 gauge (OneTouch #25 ea 10/31/18 03/07/22 Thermodynamic Process Control Lancing Devices) lisinopril 20 mg tablet 20 mg PO QAM #90 tabs 10/31/18 05/06/22 potassium citrate 10 mEq (1,080 20 meq PO TID 10/31/18 05/06/22 mg) tablet,extended release allopurinol 100 mg tablet 100 mg PO QAM 05/06/22 05/06/22 atorvastatin 80 mg tablet 80 mg PO QPM 05/06/22 05/06/22 insulin degludec 100 unit/mL (3 20 unit subcut QAM 05/06/22 05/06/22 mL) subcutaneous pen (Tresiba FlexTouch U-100 insulin) Previous Rx's Medication Instructions Recorded metoprolol succinate 25 mg 12.5 mg PO QAM #30 tabs 05/23/19 tablet,extended release 24 hr pen needle, diabetic 32 gauge x #400 ea 05/26/2032" (BD Ultra-Fine Marilyn Pen Needle) insulin aspart U-100 100 unit/mL 50 unit (0.5 mL) subcut QAM 30 03/07/22 (3 mL) subcutaneous pen (Novolog days #15 mL FlexPen U-100 Insulin aspart) Results & Data (ED) Vital Signs Vital Signs - 24 hr 05/06/22 11:58 05/06/22 12:30 05/06/22 15:00 Temperature 36.7 C Temperature Source Temporal Artery Scan Pulse Rate 104 H 74 Pulse Rate [Right Finger] Pulse Rate from SpO2 Sensor 76 Pulse Rhythm [Right Finger] Pulse Strength [Right Finger] Respiratory Rate 19 20 Respiratory Effort / Characteristics Non-Labored Respiratory Depth Respiratory Pattern Blood Pressure 127/73 135/78 Blood Pressure [Left Arm] Blood Pressure [Right Arm] Blood Pressure Mean 91 97 Blood Pressure Mean [Left Arm] Blood Pressure Mean [Right Arm] Blood Pressure Position [Left Arm] Blood Pressure Position [Right Arm] Pulse Oximetry 95 97 Oxygen Delivery Method Room Air Room Air Oxygen Flow Rate Sepsis Recent Fever Within 48 Hours No Sepsis New/Unexplained Change in Mental Status N/A Sepsis Action Taken by Nursing No Action Required 05/06/22 15:00 05/06/22 16:06 05/06/22 18:28 Temperature 36.5 C Temperature Source Temporal Artery Scan Pulse Rate Pulse Rate [Right Finger] 61 62 97 H Pulse Rate from SpO2 Sensor Pulse Rhythm [Right Finger] Regular Regular Regular Pulse Strength [Right Finger] Normal Normal Respiratory Rate 18 20 20 Respiratory Effort / Characteristics Non-Labored Non-Labored Spontaneous Non-Labored Spontaneous Respiratory Depth Normal Normal Normal Respiratory Pattern Regular Regular Blood Pressure Blood Pressure [Left Arm] 168/74 H Blood Pressure [Right Arm] 124/78 137/75 Blood Pressure Mean Blood Pressure Mean [Left Arm] 105 Blood Pressure Mean [Right Arm] 93 95 Blood Pressure Position [Left Arm] Semi-fowlers Blood Pressure Position [Right Arm] Lying Pulse Oximetry 93 97 99 Oxygen Delivery Method Room Air Room Air Oxymask Oxygen Flow Rate 10 Sepsis Recent Fever Within 48 Hours Sepsis New/Unexplained Change in Mental Status Sepsis Action Taken by Nursing 05/06/22 18:35 05/06/22 18:45 05/06/22 18:55 Temperature 36.6 C Temperature Source Temporal Artery Scan Pulse Rate Pulse Rate [Right Finger] 87 79 76 Pulse Rate from SpO2 Sensor Pulse Rhythm [Right Finger] Regular Regular Regular Pulse Strength [Right Finger] Respiratory Rate 17 23 19 Respiratory Effort / Characteristics Non-Labored Spontaneous Non-Labored Spontaneous Non-Labored Spontaneous Respiratory Depth Normal Normal Normal Respiratory Pattern Regular Regular Regular Blood Pressure Blood Pressure [Left Arm] 141/71 H 137/71 123/70 Blood Pressure [Right Arm] Blood Pressure Mean Blood Pressure Mean [Left Arm] 94 93 87 Blood Pressure Mean [Right Arm] Blood Pressure Position [Left Arm] Semi-fowlers Semi-fowlers Semi-fowlers Blood Pressure Position [Right Arm] Pulse Oximetry 98 94 94 Oxygen Delivery Method Oxymask Oxymask Nasal Cannula Oxygen Flow Rate 6 2 2 Sepsis Recent Fever Within 48 Hours Sepsis New/Unexplained Change in Mental Status Sepsis Action Taken by Detention Medications Current Medication List: was personally reviewed by me Laboratory Data Attestation: I reviewed the patient's lab results. 05/06/22 12:17 05/06/22 12:17 Lab Results 05/06/22 05/06/22 05/06/22 Range/Units 12:17 12:17 14:38 WBC 8.03 (4.8-10.8) K/ul RBC 4.40 L (4.70-6.10) M/uL Hgb 13.8 L (14.0-18.0) g/dl Hct 38.2 L (42.0-52.0) % MCV 86.8 (80.0-100.0) fL MCH 31.4 (25.0-34.0) pg MCHC 36.1 H (32.0-36.0) g/dL RDW Std Deviation 40.4 (36.4-46.3) fL RDW Coeff of [place] 12.8 (11.5-14.5) % Plt Count 189 (130-400) K/uL MPV 10.4 (9.4-12.4) fL Immature Gran % (Auto) 0.2 % Neut % (Auto) 61.8 % Lymph % (Auto) 23.7 % [place] % (Auto) 9.2 % Eos % (Auto) 4.2 % Baso % (Auto) 0.9 % Neut # (Auto) 4.96 (1.40-6.50) K/uL Lymph # (Auto) 1.90 (1.2-3.4) K/uL [place] # (Auto) 0.74 H (0.11-0.59) K/uL Eos # (Auto) 0.34 (0-0.50) K/uL Baso # (Auto) 0.07 (0-0.2) K/uL Immature Gran # (Auto) 0.02 (0.01-0.20) K/uL Sodium 140 (136-145) mmol/L Potassium 4.7 (3.5-5.1) mmol/L Chloride 108 H (98-107) mmol/L Carbon Dioxide 25 (21-32) mmol/L Anion Gap 7 (3-11) BUN 34 H (6-23) mg/dl Creatinine 1.86 H (0.6-1.4) mg/dl Est Cr Clr Drug Dosing 57.4 ml/min Est GFR ( Amer) 44.9 ml/min Est GFR (Non-Af Amer) 38.7 ml/min BUN/Creatinine Ratio 18.3 (10-20) Glucose 123 H (70-99(Fasting)) mg/dl POC Glucose 78 (70-99) mg/dl Calcium 9.8 (8.5-10.1) mg/dl Total Bilirubin 2.1 H (0.2-1.0) mg/dl AST 21 (13-39) U/L ALT 35 (7-52) U/L Alkaline Phosphatase 75 (34-104) U/L Total Protein 7.3 (6.0-8.3) gm/dl Albumin 4.2 (3.4-5.0) gm/dl Globulin 3.1 (2.5-4.0) gm/dl Albumin/Globulin Ratio 1.4 (0.9-2) Lipase 53 (11-82) U/L Urine Color Urine Appearance (Clear) Urine pH (4.5-7.5) Ur Specific [place] (1.000-1.030) Urine Protein (Negative) Urine Glucose (UA) (Negative) Urine Ketones (Negative) Urine Blood (Negative) Urine Nitrite (Negative) Urine Bilirubin (Negative) Urine Urobilinogen (Negative) Ur Leukocyte Esterase (Negative) Urine WBC (Auto) (0-5) /hpf Urine RBC (Auto) (0-4) /hpf U Hyaline Cast (Auto) (0-5) /lpf U Epithel Cells (Auto) (0-5) /lpf Urine Bacteria (Auto) (Negative) SARS-CoV-2, RNA, NAAT (NEGATIVE) 05/06/22 05/06/22 05/06/22 Range/Units 14:39 14:40 18:32 WBC (4.8-10.8) K/ul RBC (4.70-6.10) M/uL Hgb (14.0-18.0) g/dl Hct (42.0-52.0) % MCV (80.0-100.0) fL MCH (25.0-34.0) pg MCHC (32.0-36.0) g/dL RDW Std Deviation (36.4-46.3) fL RDW Coeff of [place] (11.5-14.5) % Plt Count (130-400) K/uL MPV (9.4-12.4) fL Immature Gran % (Auto) % Neut % (Auto) % Lymph % (Auto) % [place] % (Auto) % Eos % (Auto) % Baso % (Auto) % Neut # (Auto) (1.40-6.50) K/uL Lymph # (Auto) (1.2-3.4) K/uL [place] # (Auto) (0.11-0.59) K/uL Eos # (Auto) (0-0.50) K/uL Baso # (Auto) (0-0.2) K/uL Immature Gran # (Auto) (0.01-0.20) K/uL Sodium (136-145) mmol/L Potassium (3.5-5.1) mmol/L Chloride (98-107) mmol/L Carbon Dioxide (21-32) mmol/L Anion Gap (3-11) BUN (6-23) mg/dl Creatinine (0.6-1.4) mg/dl Est Cr Clr Drug Dosing ml/min Est GFR ( Amer) ml/min Est GFR (Non-Af Amer) ml/min BUN/Creatinine Ratio (10-20) Glucose (70-99(Fasting)) mg/dl POC Glucose 77 114 H (70-99) mg/dl Calcium (8.5-10.1) mg/dl Total Bilirubin (0.2-1.0) mg/dl AST (13-39) U/L ALT (7-52) U/L Alkaline Phosphatase (34-104) U/L Total Protein (6.0-8.3) gm/dl Albumin (3.4-5.0) gm/dl Globulin (2.5-4.0) gm/dl Albumin/Globulin Ratio (0.9-2) Lipase (11-82) U/L Urine Color Yellow Urine Appearance Clear (Clear) Urine pH 7.5 (4.5-7.5) Ur Specific [place] 1.023 (1.000-1.030) Urine Protein Trace H (Negative) Urine Glucose (UA) Negative (Negative) Urine Ketones Negative (Negative) Urine Blood Negative (Negative) Urine Nitrite Negative (Negative) Urine Bilirubin Negative (Negative) Urine Urobilinogen Negative (Negative) Ur Leukocyte Esterase Negative (Negative) Urine WBC (Auto) 0 (0-5) /hpf Urine RBC (Auto) 0-4 (0-4) /hpf U Hyaline Cast (Auto) 0 (0-5) /lpf U Epithel Cells (Auto) 0-5 (0-5) /lpf Urine Bacteria (Auto) Negative (Negative) SARS-CoV-2, RNA, NAAT (NEGATIVE) 05/06/22 Range/Units Unknown WBC (4.8-10.8) K/ul RBC (4.70-6.10) M/uL Hgb (14.0-18.0) g/dl Hct (42.0-52.0) % MCV (80.0-100.0) fL MCH (25.0-34.0) pg MCHC (32.0-36.0) g/dL RDW Std Deviation (36.4-46.3) fL RDW Coeff of [place] (11.5-14.5) % Plt Count (130-400) K/uL MPV (9.4-12.4) fL Immature Gran % (Auto) % Neut % (Auto) % Lymph % (Auto) % [place] % (Auto) % Eos % (Auto) % Baso % (Auto) % Neut # (Auto) (1.40-6.50) K/uL Lymph # (Auto) (1.2-3.4) K/uL [place] # (Auto) (0.11-0.59) K/uL Eos # (Auto) (0-0.50) K/uL Baso # (Auto) (0-0.2) K/uL Immature Gran # (Auto) (0.01-0.20) K/uL Sodium (136-145) mmol/L Potassium (3.5-5.1) mmol/L Chloride (98-107) mmol/L Carbon Dioxide (21-32) mmol/L Anion Gap (3-11) BUN (6-23) mg/dl Creatinine (0.6-1.4) mg/dl Est Cr Clr Drug Dosing ml/min Est GFR ( Amer) ml/min Est GFR (Non-Af Amer) ml/min BUN/Creatinine Ratio (10-20) Glucose (70-99(Fasting)) mg/dl POC Glucose (70-99) mg/dl Calcium (8.5-10.1) mg/dl Total Bilirubin (0.2-1.0) mg/dl AST (13-39) U/L ALT (7-52) U/L Alkaline Phosphatase (34-104) U/L Total Protein (6.0-8.3) gm/dl Albumin (3.4-5.0) gm/dl Globulin (2.5-4.0) gm/dl Albumin/Globulin Ratio (0.9-2) Lipase (11-82) U/L Urine Color Urine Appearance (Clear) Urine pH (4.5-7.5) Ur Specific [place] (1.000-1.030) Urine Protein (Negative) Urine Glucose (UA) (Negative) Urine Ketones (Negative) Urine Blood (Negative) Urine Nitrite (Negative) Urine Bilirubin (Negative) Urine Urobilinogen (Negative) Ur Leukocyte Esterase (Negative) Urine WBC (Auto) (0-5) /hpf Urine RBC (Auto) (0-4) /hpf U Hyaline Cast (Auto) (0-5) /lpf U Epithel Cells (Auto) (0-5) /lpf Urine Bacteria (Auto) (Negative) SARS-CoV-2, RNA, NAAT NEGATIVE (NEGATIVE) Administered Medications Sodium Chloride (Nss 1000ml) 1,000 mls @ 125 mls/hr IV .Q8H LOS Stop: 06/05/22 14:29 Last Admin: 05/06/22 15:57 Dose: 125 mls/hr Documented By: TW Discontinued Medications Bupivacaine HCl/Epinephrine Bitart (Bupivacaine/Epinephrine 0.25% 1:200,000 30 Ml Vial) Confirm Administered Dose 30 ml .ROUTE .STK-MED ONE Stop: 05/06/22 16:50 Last Admin: 05/06/22 18:07 Dose: 30 ml Documented By: [id number] Sodium Chloride (Nss 1000ml) 1,000 mls @ 999 mls/hr IV .Q1H1M ONE Stop: 05/06/22 13:18 Last Infusion: 05/06/22 14:26 Dose: 0 mls/hr Documented By: Admin: 05/06/22 12:43 Dose: 999 mls/hr Documented By: JERARDO Piperacillin Sod/Tazobactam Sod (Zosyn) 4.5 gm in 120 mls @ 240 mls/hr IV NOW ONE Stop: 05/06/22 14:57 Last Infusion: 05/06/22 16:30 Dose: 0 mls/hr Documented By: Admin: 05/06/22 15:57 Dose: 240 mls/hr Documented By: APPLE Ioversol (Optiray 350 100ml) 94 ml IV ONCE ONE Stop: 05/06/22 13:13 Last Admin: 05/06/22 13:13 Dose: 94 ml Documented By: CHEYANNE Meperidine HCl (Meperidine Hcl 25 Mg/Ml Carp/Vial) 12.5 mg IV NOW STA Stop: 05/06/22 18:46 Last Admin: 05/06/22 18:48 Dose: 12.5 mg Documented By: AMBROSIO Imaging Data Radiologist's Impression: Abdomen/Pelvis CT 05/06/22 12:[address] WITH IV CONTRAST CT DOSE: 1443.05 mGy.cm HISTORY: Acute right lower quadrant abdominal pain RLQ abd pain TECHNIQUE: Multiaxial CT images of the abdomen and pelvis were performed following the IV administration of 94 cc of Optiray, A dose lowering technique was utilized adhering to the principles of ALARA. COMPARISON STUDY: 06/08/2015 FINDINGS: Mild gynecomastia. The heart is upper limits of normal in size. 8 mm subpleural solid nodule the posterior basal segment left lower lobe on image 42 is new from prior. No pneumatosis or pneumoperitoneum. Unremarkable spleen, and adrenal glands. Cholelithiasis without CT evidence of acute cholecystitis or biliary ductal dilation. Mild generalized pancreatic atrophy with scattered prequel calcifications suggestive of chronic pancreatitis. 1.9 cm cystic structure noted within the uncinate process of the pancreas, image 189 previously measured 1.1 cm. Mild nonspecific bilateral perinephric stranding. No hydronephrosis. Prostamegaly. Urinary bladder wall thickening with partial distention. Atherosclerosis of the aorta without aneurysm. No lymphadenopathy identified. Indeterminate 1.2 x 1.0 cm nodule inferior to the third portion the duodenum on image 227. Mild colonic fecal retention. No bowel obstruction. There are a few fluid-filled loops of small bowel noted within the abdominal right lower quadrant. The appendix is dilated and fluid-filled measuring up to 1.2 cm with thickened wall and trace periappendiceal fluid/inflammation. No abscess. Tiny hiatal hernia. Chronic L5 pars defects with 3 mm anterolisthesis. No acute fracture. IMPRESSION: 1. Mild acute appendicitis. No pneumoperitoneum or abscess. 2. No bowel obstruction. 3. 8 mm subpleural solid nodule of the left lower lobe. 4. Indeterminate 1.2 cm retroperitoneal nodule inferior to the third portion of the duodenum. Attention at follow-up recommended. Please refer to below summary of Fleischner criteria recommendations for follow- up of incidental CT nodules (Glenna Quintanilla, Guidelines for management of small pulmonary nodules detected on CT scans: A statement from the Fleischner Society, Radiology 237: [phone].) SOLID NODULES Solitary nodule size: 6-8 mm * Low risk patients: follow-up at 6-12 months, then consider further follow-up at 18-24 months * high risk patients: initial follow-up CT at 6-12 months and then at 18-24 months if no change Note: newly detected indeterminate nodule in persons 35 years of age or older. * Low risk patients: minimal or absent history of smoking and/or other known risk factors * high risk patients: history of smoking or of other known risk factors (e.g. first degree relative with lung cancer, or exposure to asbestos, radon, uranium) * if a nodule up to 8 mm is partly solid or is ground glass further follow-up is required after 24 months to exclude possible slow growing adenocarcinoma (SHEILA) ACT 112: Negative or not required by law. The above report was generated using voice recognition software. It may contain grammatical, syntax or spelling errors. Electronically signed by: Noel Parker M.D. 05/06/2022 1:32 PM Discharge Plan Visit Data Chief Complaint: Abdominal Pain Stated Complaint: LOWER RIGHT SIDE PAIN ED Provider: Nadine Welch Discharge Problem: Acute appendicitis Discharge Instructions Interventions: ED Discharge Assessment Last Done: 05/06/22 17:13 : Acute appendicitis Qualifiers: Acute appendicitis type: with localized peritonitis Appendicitis gangrene presence: without gangrene Appendicitis perforation presence: without perforation Appendicitis abscess presence: without abscess Qualified Code(s): K35.30 - Acute appendicitis with localized peritonitis, without perforation or gangrene
[2022-05-06 12:39] LABS: Basophils # (auto) 0.07 K/uL (0-0.2); Basophils % (auto) 0.9 %; Eosinophils # (auto) 0.34 K/uL (0-0.50); Eosinophils % (auto) 4.2 %; Hematocrit (blood only) 38.2 % (42.0-52.0); Hemoglobin 13.8 g/dl (14.0-18.0); Immature Granulocytes # (auto) 0.02 K/uL (0.01-0.20); Immature Granulocytes % (auto) 0.2 %; Lymphocytes % (auto) 23.7 %; Mean Corpuscular Hemoglobin 31.4 pg (25.0-34.0); Mean Corpuscular Hgb Conc 36.1 g/dL (32.0-36.0); Mean Corpuscular Volume 86.8 fL (80.0-100.0); Mean Platelet Volume 10.4 fL (9.4-12.4); Monocytes # (auto) 0.74 K/uL (0.11-0.59); Monocytes % (auto) 9.2 %; Neutrophils # (auto) 4.96 K/uL (1.40-6.50); Neutrophils % (auto) 61.8 %; Platelet Count 189 K/uL (130-400); RDW Coefficient of Variation 12.8 % (11.5-14.5); RDW Standard Deviation 40.4 fL (36.4-46.3); White Blood Count 8.03 K/ul (4.8-10.8)
[2022-05-06 13:01] LABS: Albumin Globulin Ratio 1.4 (0.9-2); Albumin Level 4.2 gm/dl (3.4-5.0); BUN Creatinine Ratio 18.3 (10-20); Bilirubin,Total 2.1 mg/dl (0.2-1.0); Calcium 9.8 mg/dl (8.5-10.1); Creatinine Clr Calc Pharmacy 57.4 ml/min; Est GFR (African American) 44.9 ml/min; Est GFR (Non-African American) 38.7 ml/min; Globulin 3.1 gm/dl (2.5-4.0); Potassium 4.7 mmol/L (3.5-5.1); Total Protein 7.3 gm/dl (6.0-8.3)
[2022-05-06] MEDS ORDERED: OPTIRAY 350 100ml IV ONE (13:12)
--- NOTE | 2022-05-06 13:34 | CT Scan Report ---
ABDOMEN AND PELVIS CT WITH IV CONTRAST CT DOSE: 1443.05 mGy.cm HISTORY: Acute right lower quadrant abdominal pain RLQ abd pain TECHNIQUE: Multiaxial CT images of the abdomen and pelvis were performed following the IV administrat ion of 94 cc of Optiray, A dose lowering technique was utilized adhering to the principles of ALARA. COMPARISON STUDY: 06/08/2015 FINDINGS: Mild gynecomastia. The heart is upper limits of normal in size. 8 mm subpleural solid nodul e the posterior basal segment left lower lobe on image 42 is new from prior. No pneumatosis or pneumo peritoneum. Unremarkable spleen, and adrenal glands. Cholelithiasis without CT evidence of acute chol ecystitis or biliary ductal dilation. Mild generalized pancreatic atrophy with scattered prequel calc ifications suggestive of chronic pancreatitis. 1.9 cm cystic structure noted within the uncinate proc ess of the pancreas, image 189 previously measured 1.1 cm. Mild nonspecific bilateral perinephric stranding. No hydronephrosis. Prostamegaly. Urinary bladder wa ll thickening with partial distention. Atherosclerosis of the aorta without aneurysm. No lymphadenopa thy identified. Indeterminate 1.2 x 1.0 cm nodule inferior to the third portion the duodenum on image 227. Mild colonic fecal retention. No bowel obstruction. There are a few fluid-filled loops of small bowel noted within the abdominal right lower quadrant. The appendix is dilated and fluid-filled ruben uring up to 1.2 cm with thickened wall and trace periappendiceal fluid/inflammation. No abscess. Tiny hiatal hernia. Chronic L5 pars defects with 3 mm anterolisthesis. No acute fracture. IMPRESSION: 1. Mild acute appendicitis. No pneumoperitoneum or abscess. 2. No bowel obstruction. 3. 8 mm subpleural solid nodule of the left lower lobe. 4. Indeterminate 1.2 cm retroperitoneal nodule inferior to the third portion of the duodenum. Attenti on at follow-up recommended. Please refer to below summary of Fleischner criteria recommendations for follow-up of incidental CT n odules (Glenna Quintanilla, Guidelines for management of small pulmonary nodules detected on CT scans: A sta tement from the Fleischner Society, Radiology 237: [phone].) SOLID NODULES Solitary nodule size: 6-8 mm * Low risk patients: follow-up at 6-12 months, then consider further follow-up at 18-24 months * high risk patients: initial follow-up CT at 6-12 months and then at 18-24 months if no change Note: newly detected indeterminate nodule in persons 35 years of age or older. * Low risk patients: minimal or absent history of smoking and/or other known risk factors * high risk patients: history of smoking or of other known risk factors (e.g. first degree relative with lung cancer, or exposure to asbestos, radon, uranium) * if a nodule up to 8 mm is partly solid or is ground glass further follow-up is required after 24 m onths to exclude possible slow growing adenocarcinoma (SHEILA) ACT 112: Negative or not required by law. The above report was generated using voice recognition software. It may contain grammatical, syntax o r spelling errors. Electronically signed by: Noel Parker M.D. 05/06/2022 1:32 PM
[2022-05-06] MEDS ORDERED: PIPERACILLIN/TAZOBACTAM 4.5 GM/120 ML BAG IV ONE (14:28)
[2022-05-06 15:23] LABS: Appearance Urine Clear (Clear); Bacteria Urine Automated Negative (Negative); Bilirubin Urine Negative (Negative); Blood Urine Negative (Negative); Cast Urine Automated 0 /lpf (0-5); Color Urine Yellow; Epithelial Cell Urine Auto 0-5 /lpf (0-5); Glucose Urine UA Negative (Negative); Ketones Urine Negative (Negative); Leukocyte Esterase Urine Negative (Negative); Nitrite Urine Negative (Negative); RBC Urine Automated 0-4 /hpf (0-4); Specific Gravity Urine 1.023 (1.000-1.030); Urobilinogen Urine Negative (Negative); WBC Urine Automated 0 /hpf (0-5); pH Urine 7.5 (4.5-7.5)
[2022-05-06 15:50] LABS: Protein Urine Trace (Negative)
[2022-05-06] MEDS: SODIUM CHLORIDE 0.9% 1000ML 1,000 ML IV SCH ×3 (15:57→21:41)
[2022-05-06] MEDS ORDERED: BUPIVACAINE/EPINEPHRINE 0.25% 1:200,000 30 ML VIAL ONE (16:49)
--- NOTE | 2022-05-06 16:59 | Anesthesiology Consultation ---
Date of Service May 06, 2022 History Surgery Operation Date: 05/06/22 16:00 Proposed Procedures p Laparoscopic Appendectomy - Chris Harris, Height/Weight Height: 5 ft 11 in Weight: 124.4 kg Allergies Allergy/AdvReac Type Severity Reaction Status Date / Time No Known Allergies Allergy Verified 05/06/22 15:36 Medications Home Medications Medication Instructions Recorded Confirmed Last Taken amlodipine 10 mg tablet 10 mg PO HS 10/31/18 05/06/22 09/18/20 aspirin 81 mg tablet,delayed 81 mg PO Q2D 10/31/18 05/06/22 05/05/22 release cholecalciferol (vitamin D3) 50 2,000 units PO QAM #30 caps 10/31/18 05/06/22 09/19/20 mcg (2,000 unit) capsule lancets 28 gauge (OneTouch #25 ea 10/31/18 03/07/22 Unknown SureSoft Lancing Devices) lisinopril 20 mg tablet 20 mg PO QAM #90 tabs 10/31/18 05/06/22 09/19/20 potassium citrate 10 mEq (1,080 20 meq PO TID 10/31/18 05/06/22 09/19/20 mg) tablet,extended release metoprolol succinate 25 mg 12.5 mg PO QAM #30 tabs 05/23/19 05/06/22 09/19/20 tablet,extended release 24 hr pen needle, diabetic 32 gauge x #400 ea 05/26/20 03/07/22 Unknown 5/32" (BD Ultra-Fine Marilyn Pen Needle) insulin aspart U-100 100 unit/mL 50 unit (0.5 mL) subcut QAM 30 03/07/22 05/06/22 Unknown (3 mL) subcutaneous pen (Novolog days #15 mL FlexPen U-100 Insulin aspart) allopurinol 100 mg tablet 100 mg PO QAM 05/06/22 05/06/22 Unknown atorvastatin 80 mg tablet 80 mg PO QPM 05/06/22 05/06/22 Unknown insulin degludec 100 unit/mL (3 20 unit subcut QAM 05/06/22 05/06/22 Unknown mL) subcutaneous pen (Tresiba FlexTouch U-100 insulin) Active Medications Generic Name Dose Route Start Last Admin Trade Name Freq PRN Reason Stop Dose Admin Sodium Chloride 1,000 mls @ 125 mls/hr 05/06/22 14:30 05/06/22 15:57 Nss 1000ml IV 06/05/22 14:29 125 mls/hr .Q8H LOS Administration Past Medical History Medical History CKD (chronic kidney disease), stage III Diabetic peripheral neuropathy associated with type 2 diabetes mellitus DM type 2 (diabetes mellitus, type 2) HTN (hypertension) Hyperlipidemia Loss of protective sensation of skin of foot Past Family History Family History Other No pertinent family history in first degree relatives Past Surgical History Surgical History H/O cataract removal with insertion of prosthetic lens H/O skin graft Social History Smoking Status: Current every day smoker tobacco type: smokeless tobacco Hx Alcohol Use: No Alcohol type: beer, wine and hard liquor alcohol intake frequency: a few times a month Hx Substance Use: No substance use type: does not use Physical Exam Vital Signs Last Vital Signs Temp 36.7 C 05/06/22 11:58 Pulse 62 05/06/22 16:06 Resp 20 05/06/22 16:06 BP 137/75 05/06/22 16:06 Pulse Ox 97 05/06/22 16:06 O2 Del Method 05/06/22 16:06 Testing Laboratory Results 05/06/22 12:17 05/06/22 12:17 Urine Color Yellow 05/06/22 14:40 Urine Appearance Clear (Clear) 05/06/22 14:40 Urine pH 7.5 (4.5-7.5) 05/06/22 14:40 Ur Specific [place] 1.023 (1.000-1.030) 05/06/22 14:40 Urine Protein Trace (Negative) H 05/06/22 14:40 Urine Glucose (UA) Negative (Negative) 05/06/22 14:40 Urine Ketones Negative (Negative) 05/06/22 14:40 Urine Nitrite Negative (Negative) 05/06/22 14:40 Ur Leukocyte Esterase Negative (Negative) 05/06/22 14:40 Urine WBC (Auto) 0 /hpf (0-5) 05/06/22 14:40 Urine RBC (Auto) 0-4 /hpf (0-4) 05/06/22 14:40 U Hyaline Cast (Auto) 0 /lpf (0-5) 05/06/22 14:40 U Epithel Cells (Auto) 0-5 /lpf (0-5) 05/06/22 14:40 Urine Bacteria (Auto) Negative (Negative) 05/06/22 14:40 05/06/22 05/06/22 14:39 14:38 POC Glucose 77 78 Electrocardiogram Date: 09/19/20 Findings: + SB @ (52) pac's, 1st degree av block Echocardiogram Date: 01/26/19 EF: 50-55% LV Function: normal Valvular Disease: + no significant valvular disease
[2022-05-06] MEDS ORDERED: MIDAZOLAM HCL 1 MG/ML 2ML VIAL ONE (17:15)
[2022-05-06] MEDS ORDERED: fentaNYL citrate 100 MCG/2 ML VIAL ONE (17:15)
--- NOTE | 2022-05-06 17:18 | Surgery Consultation ---
Date of Consultation May 06, 2022 Assessment & Plan (1) Acute appendicitis: CT images and results personally viewed by myself, consistent with appendicitis We will take the patient the operating room tonight for laparoscopic appendectomy, possible open Consent was obtained, risks discussed including bleeding, infection, leak, abscess History of Present Illness Reason for Consultation: Abdominal pain Attending Physician: Chris Harris, DO History of Present Illness Is a 57-year-old male who presents emergency department with sharp right lower quadrant pain for the last 24 hours. There is no radiation of the pain. There are no relieving or worsening factors. Denies any nausea or vomiting. Denies any previous abdominal surgeries. He denies any fevers or chills. Allergies Allergy/AdvReac Type Severity Reaction Status Date / Time No Known Allergies Allergy Verified 05/06/22 15:36 Home Medications Medication Instructions Recorded Confirmed Type amlodipine 10 mg tablet 10 mg PO HS 10/31/18 05/06/22 History aspirin 81 mg tablet,delayed 81 mg PO Q2D 10/31/18 05/06/22 History release cholecalciferol (vitamin D3) 50 2,000 units PO QAM #30 caps 10/31/18 05/06/22 History mcg (2,000 unit) capsule lancets 28 gauge (OneTouch #25 ea 10/31/18 03/07/22 History Senic Lancing Devices) lisinopril 20 mg tablet 20 mg PO QAM #90 tabs 10/31/18 05/06/22 History potassium citrate 10 mEq (1,080 20 meq PO TID 10/31/18 05/06/22 History mg) tablet,extended release metoprolol succinate 25 mg 12.5 mg PO QAM #30 tabs 05/23/19 05/06/22 Rx tablet,extended release 24 hr pen needle, diabetic 32 gauge x #400 ea 05/26/20 03/07/22 Rx 5/32" (BD Ultra-Fine Marilyn Pen Needle) insulin aspart U-100 100 unit/mL 50 unit (0.5 mL) subcut QAM 30 03/07/2207/23 Rx (3 mL) subcutaneous pen (Novolog days #15 mL FlexPen U-100 Insulin aspart) allopurinol 100 mg tablet 100 mg PO QAM 05/06/22 05/06/22 History atorvastatin 80 mg tablet 80 mg PO QPM 05/06/22 05/06/22 History insulin degludec 100 unit/mL (3 20 unit subcut QAM 05/06/22 05/06/22 History mL) subcutaneous pen (Tresiba FlexTouch U-100 insulin) Patient History Medical History CKD (chronic kidney disease), stage III Diabetic peripheral neuropathy associated with type 2 diabetes mellitus DM type 2 (diabetes mellitus, type 2) HTN (hypertension) Hyperlipidemia Loss of protective sensation of skin of foot Surgical History H/O cataract removal with insertion of prosthetic lens H/O skin graft Family History Other No pertinent family history in first degree relatives Social History Smoking Status: Current every day smoker Tobacco Type: Smokeless Tobacco (Dip or Chew) Second Hand Exposure: No; Hx Alcohol Use: No Hx Substance Use: No Preferred Language: [place] Communication Ability: Effective Visual Impairment: No Limitations Hearing Ability: Normal Neighborhood Planner Required: No Beliefs That Will Affect Care: None Current Living Situation: Family Current Living Situation Comment: brother and sister in law current occupational status: disabled Feels Safe at Home: Yes caffeine: No Assistive Devices: Denture - Upper and Denture - Lower Review of Systems Constitutional: no fever and no chills Eyes: no worsening vision Ear, Nose, Mouth, Throat: no ear pain and no nasal congestion Respiratory: no cough and no dyspnea Cardiovascular: no chest pain and no dyspnea on exertion Gastrointestinal: + abdominal pain; no nausea and no vomiting Genitourinary: no dysuria Musculoskeletal: no back pain and no neck pain Integumentary: no acne, no rash and no lesions Neurologic: no headache(s) Psychiatric: no behavioral changes and no depression Hematologic / Lymphatic: no easy bleeding and no easy bruising Physical Exam Constitutional: WD/WN, vitals as above Eyes: PERRL, conjunctivae normal, anicteric sclerae ENMT: external ear and nose normal, oropharynx normal Neck: trachea midline, no thyromegaly Respiratory: normal respiratory effort, lungs clear to auscultation Cardiovascular: RRR, no murmur, no edema Gastrointestinal (Abdomen): Inspection/Auscultation: abdomen normal to inspection; abdomen not distended Percussion/Palpation: + abdomen tender (Right lower quadrant), + guarding and abdomen soft; abdomen not rigid and no hernia Musculoskeletal: no cyanosis or clubbing, extremities motor strength 5/5 Skin: no rashes, warm and dry Neurologic: PERRL, EOMI, accommodation nl, no face palsy, no dysarthria Psychiatric: A+Ox3, euthymic affect Results & Data ([facility]) Vital Signs (Past 12 Hours) Vital Signs Temp Pulse Pulse Resp BP BP Pulse Ox 05/06/22 16:06 62 20 137/75 97 05/06/22 15:00 61 18 124/78 93 05/06/22 15:00 05/06/22 12:30 74 20 135/78 97 05/06/22 11:58 36.7 C 104 H 19 127/73 95 O2 Del Method 05/06/22 16:06 Room Air 05/06/22 15:00 Room Air 05/06/22 15:00 Room Air 05/06/22 12:30 05/06/22 11:58 Room Air PG Care Time/CCT Total # of Minutes Spent Total Time Spent with Patient: Total time spent is greater than 50% in coordination of care (as documented) at patient's floor/unit and/or counseling patient: Coding Level of Care Code OFFICE CONSULT LVL 5, 55 MIN Diagnoses Acute appendicitis K35.80
[2022-05-06] MEDS ORDERED: KETOROLAC 30 MG/ML VIAL IV PRN (17:44)
[2022-05-06] MEDS ORDERED: ATROPINE SULFATE 0.1 MG/ML 10ML SYR IV PRN (17:44)
[2022-05-06] MEDS ORDERED: fentaNYL citrate 100 MCG/2 ML VIAL IV PRN (17:44)
[2022-05-06] MEDS ORDERED: ONDANSETRON INJ 2 MG/ML 2 ML VIAL IV PRN ×2 (17:44→20:54)
[2022-05-06] MEDS ORDERED: PROMETHAZINE HCL 12.5 MG in SODIUM CHLORIDE 0.9% 50 ML IV PRN (17:44)
[2022-05-06] MEDS ORDERED: DEXAMETHASONE SOD INJ 4 MG/ML VIAL ONE (18:08)
[2022-05-06] MEDS ORDERED: LIDOCAINE 2% MPF LOCAL 5 ML VIAL INFIL ONE (18:08)
[2022-05-06] MEDS ORDERED: ROCURONIUM BROMIDE 10 MG/ML 5 ML VIAL IV ONE (18:08)
[2022-05-06] MEDS ORDERED: PROPOFOL IV EMULSION 10 MG/ML 20 ML VIAL IV ONE (18:08)
[2022-05-06] MEDS ORDERED: ONDANSETRON INJ 2 MG/ML 2 ML VIAL ONE (18:08)
[2022-05-06] MEDS ORDERED: SUGAMMADEX SODIUM 200 MG/2 ML VIAL IV ONE (18:09)
--- NOTE | 2022-05-06 18:18 | Post Operative Brief Note ---
PG Immediate Post Op with CF Date of Surgery May 06, 2022 Pre & Post Diagnosis Operation Date: 05/06/22 16:00 Pre-Op Diagnosis: Acute appendicitis Post-Op Diagnosis: Acute appendicitis without perforation I identified the patient and participated in the time-out.: Yes Procedure Operation Date: 05/06/22 16:00 Actual Procedures p Laparoscopic Appendectomy(Not Applicable) - Chris Harris DO Surgeon Chris Harris DO Ballpoint Pen Assembly Machine Operator None Estimated Blood Loss 15 Findings See Below Acutely inflamed dilated appendix without perforation Specimens Specimen Description: A. Appendix Drains Tatum Catheter (16 Fr. Tatum catheter inserted by Rola Macario RN without d ifficulty. Draining clear yellow urine. Anesthesia to monitor urine output. Tatum catheter removed at end of case. ) Anesthesia Type General Complications none Disposition Disposition: Recovery Room
--- NOTE | 2022-05-06 18:21 | Operative Report ---
PG Post Operative Report Pre & Post Diagnosis Operation Date: 05/06/22 16:00 Pre-Op Diagnosis: Acute appendicitis Post-Op Diagnosis: Acute appendicitis without perforation I identified the patient and participated in the time-out.: Yes Procedure Operation Date: 05/06/22 16:00 Actual Procedures p Laparoscopic Appendectomy(Not Applicable) - Chris Harrsi DO Surgeon Chris Harris DO Railroad Police Officer None Estimated Blood Loss 15 Findings See Below Acutely inflamed, dilated appendix without perforation Specimens Appendix to pathology Drains None Anesthesia Type General Complications none Disposition Disposition: Recovery Room Indications 57-year-old male with acute appendicitis Description of Procedure The patient was brought to the OR and placed in the supine position and SCD's placed. At this time he underwent general endotracheal anesthesia without incident. At this time a Tatum catheter was placed under sterile conditions. His abdomen was prepped and draped in the usual sterile fashion. He was given appropriate pre-operative antibiotics. A timeout was called, the procedure was verified as Laparoscopic appendectomy, possible open. Surgical, anesthesia and nursing teams agreed and the procedure was begun. After injection of 0.25% Marcaine with epinephrine, a supraumbilical incision was made using a #11 blade scalpel and carried down to the fascia with a hemostat. The abdomen was then elevated with towel clamps and entered using the Veress needle confirming position using the saline drop test. Pneumoperitoneum was established and 5mm trocar was placed. Laparoscope was introduced. No injury was seen from our entrance to the abdomen. At this time a 5mm suprapubic port and 12mm LLQ port were placed under direct visualization. The patient was placed in Trendelenburg and rotated to the left. At this time the appendix was visualized and the tip was freed and elevated toward the abdominal wall. The appendix appeared inflamed, dilated and edematous. A window was created in the mesoappendix at the base of the appendix. A 45mm purple load stapler was then fired across the base of the appendix which appeared healthy. The mesoappendix was then taken using Harmonic device. The appendix was then placed in an Endocatch bag and removed through the LLQ port site. Staple line was inspected and was intact. Hemostasis was complete. Some bleeding was noted at the left lower quadrant 12mm port site. The 12 mm port was then closed at the fascial level using a 0 Vicryl suture using the suture passer with 2 throws. Hemostasis was then achieved and no further bleeding was noted. All ports were removed under direct visualization and no bleeding was noted. The abdomen was desufflated and the skin was closed using 4-0 Monocryl in a subcuticular fashion. Sterile dressings were applied. Tatum catheter was removed. The patient was then awakened from anesthesia having remained stable throughout the entire case and transported to PACU. All needle and sponge counts were correct x 2. I attest to the content of the Intraoperative Record and any orders documented therein. Any exceptions are noted below.
[2022-05-06] MEDS ORDERED: MEPERIDINE HCL 25 MG/ML CARP/VIAL IV STA (18:45)
[2022-05-06] MEDS ORDERED: MEPERIDINE HCL 25 MG/ML CARP/VIAL IV PRN (18:46)
[2022-05-06] MEDS ORDERED: MEPERIDINE HCL 25 MG/ML CARP/VIAL ONE (18:46)
--- NOTE | 2022-05-06 18:56 | Anesthesiology Progress Note ---
Date of Service May 06, 2022 Anesthesia Post Procedure Vital Signs Vital Signs: Temp Pulse Pulse Resp BP BP BP 05/06/22 18:55 76 19 123/70 05/06/22 18:45 79 23 137/71 05/06/22 18:35 87 17 141/71 H 05/06/22 18:28 36.5 C 97 H 20 168/74 H 05/06/22 16:06 62 20 137/75 05/06/22 15:00 61 18 124/78 05/06/22 15:00 05/06/22 12:30 74 20 135/78 05/06/22 11:58 36.7 C 104 H 19 127/73 Pulse Ox O2 Del Method O2 Flow Rate 05/06/22 18:55 94 Nasal Cannula 2 05/06/22 18:45 94 Oxymask 2 05/06/22 18:35 98 Oxymask 6 05/06/22 18:28 99 Oxymask 10 05/06/22 16:06 97 Room Air 05/06/22 15:00 93 Room Air 05/06/22 15:00 Room Air 05/06/22 12:30 97 05/06/22 11:58 95 Room Air Pain Intensity Abdomen: Pain Intensity: 2 Transfer of Care Handoff Completed per policy Notes Mental Status: alert / awake / arousable Patient Amnestic to Procedure: Yes Nausea / Vomiting: adequately controlled Pain: adequately controlled Airway Patency, RR, SpO2: stable & adequate BP & HR: stable & adequate Hydration State: stable & adequate Anesthetic Complications: no major complications apparent
[2022-05-06] MEDS ORDERED: oxyCODONE HCL IR 5 MG TAB (IMMEDIATE RELEASE) PO PRN ×2 (20:54)
[2022-05-06] MEDS ORDERED: ACETAMINOPHEN 325 MG TAB PO PRN (20:54)
[2022-05-06] MEDS ORDERED: MoRPHine SULFATE 2 MG/ML CARP IV PRN (20:54)
[2022-05-06] MEDS ORDERED: MoRPHine SULFATE 4 MG/ML 1 ML CARP\\VIAL IV PRN (20:54)
[2022-05-06] MEDS ORDERED: ATORVASTATIN 40 MG TAB PO SCH (21:00)
[2022-05-07] MEDS: SODIUM CHLORIDE 0.9% 1000ML 1,000 ML IV SCH ×2 (05:18→15:07)
--- NOTE | 2022-05-07 05:26 | Surgery Progress Note ---
Date of Service May 07, 2022 Assessment & Plan (1) Acute appendicitis: Plan: Status post laparoscopic appendectomy on 05/06/2022 (postop day #1) Continue clear liquids with plans to advance diet as tolerated Continue analgesics Continue antiemetics Continue IV fluids until oral intake is reliable Patient will likely be able to be discharged home if he tolerates further diet advancement Admission and Anticipated Discharge Date Admission Date: May 06, 2022 Supervising Physician Co-Signing Physician Notes I personally saw and evaluated the patient with Awais Mckeon PA-C and agree with the assessment and plan. 57-year-old male status post laparoscopic appendectomy He is overall doing well without nausea His pain is controlled and vital signs normal He was just straight cathed this morning and has not urinated on his own since surgery We will give him a regular diet this morning If he is able to tolerate his diet and void on his own he can be discharged later this afternoon Subjective Patient is resting comfortably in bed. He notes his pain is well controlled. He says he has passed some flatus since his surgery but no bowel movement. He denies any nausea or vomiting. Since surgery he is only had a few sips of clears. Physical Exam Gastrointestinal (Abdomen): 3 laparoscopic surgical incisions are covered with dressings that are clean, dry, intact. Bowel sounds are hypoactive but present. Abdomen is soft, nonrigid, nondistended. Minimal pain noted with palpation. Results & Data ([facility]) Vital Signs (Past 12 Hours) Vital Signs Temp Pulse Resp BP Pulse Ox O2 Del Method O2 Flow Rate 05/07/22 03:24 36.8 C 67 18 116/62 94 Room Air 05/06/22 23:49 36.6 C 63 18 108/62 94 Room Air 05/06/22 22:47 36.9 C 67 18 110/66 93 Room Air 05/06/22 20:45 61 16 105/62 93 Nasal Cannula 2 05/06/22 21:11 Nasal Cannula 2 05/06/22 20:10 36.6 C 71 16 112/65 93 Nasal Cannula 2 05/06/22 19:40 36.7 C 78 18 125/74 93 Nasal Cannula 2 05/06/22 19:10 77 19 126/75 92 Nasal Cannula 2 05/06/22 18:55 36.6 C 76 19 123/70 94 Nasal Cannula 2 05/06/22 18:45 79 23 137/71 94 Oxymask 2 05/06/22 18:35 87 17 141/71 H 98 Oxymask 6 05/06/22 18:28 36.5 C 97 H 20 168/74 H 99 Oxymask 10 PG Care Time/CCT Total # of Minutes Spent Total Time Spent with Patient: Total time spent is greater than 50% in coordination of care (as documented) at patient's floor/unit and/or counseling patient: Coding Level of Care Code None Diagnoses Acute appendicitis K35.30 Acute appendicitis type: with localized peritonitis Appendicitis abscess presence: without abscess Appendicitis gangrene presence: without gangrene Appendicitis perforation presence: without perforation (1) Acute appendicitis Acute appendicitis type: with localized peritonitis Appendicitis abscess presence: without abscess Appendicitis gangrene presence: without gangrene Appendicitis perforation presence: without perforation Qualified Code(s): K35.30 - Acute appendicitis with localized peritonitis, without perforation or gangrene
[2022-05-07] MEDS ORDERED: DEXTROSE 50% 50 ML SYRINGE IV PRN (09:00)
[2022-05-07] MEDS ORDERED: CARBOHYDRATES FOR HYPOGLYCEMIA PO PRN (09:00)
[2022-05-07] MEDS ORDERED: CHOLECALCIFEROL 1,000 UNITS 25 MCG TAB PO SCH (09:00)
[2022-05-07] MEDS ORDERED: GLUCOSE 40% GEL 15 GM TUBE PO PRN (09:00)
[2022-05-07] MEDS ORDERED: METOPROLOL SUCC 25MG EXT REL TAB PO SCH (09:00)
[2022-05-07] MEDS ORDERED: ASPIRIN 81 MG ECTAB PO SCH (09:00)
[2022-05-07] MEDS ORDERED: allopurinoL 100 MG TAB PO SCH (09:00)
[2022-05-07] MEDS ORDERED: GLUCOSE 10 TAB/TUBE PO PRN (09:00)
[2022-05-07] MEDS ORDERED: GLUCAGON FOR INJ 1 MG VIAL IM PRN (09:00)
[2022-05-07] MEDS ORDERED: INSULIN HUMAN REGULAR SC SCH (11:30)
--- NOTE | 2022-05-10 20:39 | Discharge Summary ---
Date of Service May 10, 2022 Discharge Data Consultations 05/06/22 15:03 ED Decision to Admit Stat Procedures Performed Operation Date: 05/06/22 16:00 Actual Procedures p Laparoscopic Appendectomy(Not Applicable) - Chris Harris DO Hospital Course (1) Acute appendicitis: This is a 57-year-old male who presented to [facility] on date of admission which was 05/06/2022. Should be noted that his date of discharge is 05/07/2022. Patient presented with abdominal pain and a CT scan of the abdomen and pelvis was concerning for acute appendicitis. On date of admission Dr. Harris performed a laparoscopic appendectomy that difficulty. The following day the patient's diet was advanced as tolerated. Of note the patient did have an episode of urinary retention which required 1 episode of straight catheterization but subsequently resolved. He was able be discharged home on postop day #1 which was 05/07/2022. He was instructed on appropriate wound care, diet, and activity. He was instructed to follow-up with Dr. Harris in the office in approximate 1 to 2 weeks. Coding Level of Care Code None Diagnoses Acute appendicitis K35.30 Acute appendicitis type: with localized peritonitis Appendicitis abscess presence: without abscess Appendicitis gangrene presence: without gangrene Appendicitis perforation presence: without perforation
== END 2022-05-07 15:30 | disposition home or self-care (01) ==
LOC: ED 11:55 → 3W 17:00 → OR 17:00 → 3W 17:13

== ENCOUNTER 2024-09-08 13:13 | Observation (INO) ==
[2024-09-08 13:48] LABS: Basophils # (auto) 0.05 K/uL (0.00-0.20); Basophils % (auto) 0.8 %; Eosinophils # (auto) 0.25 K/uL (0.00-0.50); Hematocrit (blood only) 36.7 % (42.0-52.0); Hemoglobin 12.7 g/dl (14.0-18.0); Immature Granulocytes # (auto) 0.02 K/uL (0.01-0.20); Immature Granulocytes % (auto) 0.3 %; Lymphocytes # (auto) 1.61 K/uL (1.20-3.40); Lymphocytes % (auto) 25.7 %; Mean Corpuscular Hemoglobin 30.5 pg (25.0-34.0); Mean Corpuscular Hgb Conc 34.6 g/dL (32.0-36.0); Mean Platelet Volume 10.3 fL (9.4-12.4); Monocytes # (auto) 0.43 K/uL (0.11-0.59); Monocytes % (auto) 6.9 %; Neutrophils # (auto) 3.91 K/uL (1.40-6.50); Neutrophils % (auto) 62.3 %; Platelet Count 217 K/uL (130-400); RDW Coefficient of Variation 13.2 % (11.5-14.5); RDW Standard Deviation 41.6 fL (36.4-46.3); Red Blood Count 4.17 M/uL (4.70-6.10); White Blood Count 6.27 K/ul (4.8-10.8)
--- NOTE | 2024-09-08 13:53 | XRay Report ---
XR chest 1V not portable CLINICAL HISTORY: Chest pain, nonspecific COMPARISON STUDY: 01/24/2019 FINDINGS: Heart size and pulmonary vasculature are normal. No effusion, consolidation, or pneumothora x. IMPRESSION: No acute findings. ACT 112: Negative or not required by law. Electronically signed by: Brando Baumann M.D. 09/08/2024 1:52 PM
[2024-09-08 14:06] LABS: Albumin Globulin Ratio 1.4 (0.9-2); BUN Creatinine Ratio 11.1 (10-20); Bilirubin,Total 1.8 mg/dl (0.2-1.0); Calcium 9.5 mg/dl (8.6-10.3); Potassium 4.2 mmol/L (3.5-5.1); Total Protein 7.2 gm/dl (6.0-8.3)
[2024-09-08 14:12] LABS: Troponin I High Sensitivity 7.3 pg/ml (0-20)
[2024-09-08 14:14] LABS: Partial Thromboplastin Time 28 Seconds (21-31)
[2024-09-08] MEDS: SODIUM CHLORIDE 0.9% 500 ML IV ONE (15:07)
--- NOTE | 2024-09-08 15:15 | History & Physical Report ---
Date of Service September 08, 2024 Assessment & Plan (1) Chest pain: (2) Diabetes mellitus type 2 with complications: (3) HTN (hypertension): (4) Diarrhea due to drug: (5) Chronic kidney disease: Plan Pt is a 59 yo male with a past medical hx of DMT2 with CKD, HTN, HLD, and hx gou t who presents to the hospital on 09/08 for chest pain. 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 - CXR neg, initial trop negative, repeat pending - given episodes are with activity and hx of angina in the past will do cardiac workup, but question of mounjaro may be contributing - will do stress echo - will also treat with protonix, pepcid, and carafate - lipase pending #Orthostatic hypotension - suspected given pt compliant of lightheadedness on position change in the setting of continual diarrhea for 3 weeks to be related to volume depletion - will do orthostatics in the am after fluid repletion #Diarrhea - ongoing for 3-4 weeks - does happen to coincide with increase in mounjaro dose from 7.5->10 mg per pt - would hold this medication given the copious diarrhea described while here in the hospital (Next scheduled dose would be 09/09), consider reducing or stopping on discharge - defer stool PCR testing unless symptoms worsen or there are other signs of infection, but no WBC count or fever on admission #DMT2 - pt states he has not needed to take his insulin since being on mounjaro - last HA1c 08/29/24; 6.8%, controlled - will defer insulin on admission since pt reports infrequent use at home but could consider adding regime if sugars are elevated #CKD - no clear baseline as his records mostly with [facility], but suspect around 2.0 - Cr on admission 2.35, similar to end of July Cr - given 1 L bolus by the ER, will encourage po and do LR 100/hr for 1 bag - hold home lisinopril pending am labs VTE ppx: heparin given significant CKD Diet: DMT2 with ACHS sugar checks History of Present Illness Chief Complaint: Chest pain Primary Care Provider: Milan Alcazar, Pt is a 59 yo male with a past medical hx of DMT2 with CKD, HTN, HLD, and hx gout who presents to the hospital on 09/08 for chest pain. Pt states he had an episode of chest pain last week on when he was doing work in his garage. He states that the episode went away when he sat for awhile. He states he had a few minor episodes since then and then today he was trimming the hedges of his yard and another episode started and has been persistent, prompting him to come into the hospital for further eval. He denies hx [place]/CVA but has had a cath in 2019 which was wnl for chest pain symptoms. He denies SOB. No nausea or vomiting. No syncope but does notice some lightheadedness when initially going from sitting to standing position that goes away a bit after. He does state that over the last 3 weeks he has had daily watery diarrhea, mostly in the evenings, 5-6 episodes of nonbloody watery diarrhea. He does note that he is on mounjaro and his dose was increased to 10 mg about 1 mo ago. He states he takes his dose on Tuesdays so would be due for one tomorrow. He does get some mild abdominal cramps but these are very sporadic. He states that he drinks city water that he uses a filter on, has not drank water from a stream/outdoors recently, no one else in the household has diarrhea, no fevers with this. He does state he had a esophageal issue and states that he had a dilation of his esophagus about 3 weeks ago as well, swallowing has been okay since. He states he had a burger get stuck in his esophagus recently leading to this EGD. The EGD was done with Donnie per pt. Allergies Allergy/AdvReac Type Severity Reaction Status Date / Time No Known Allergies Allergy Verified 09/08/24 15:27 Home Medications Medication Instructions Recorded Confirmed Type aspirin 81 mg tablet,delayed 81 mg PO Q2D 10/31/18 09/08/24 History release cholecalciferol (vitamin D3) 50 2,000 units PO QAM #30 caps 10/31/18 09/08/24 History mcg (2,000 unit) capsule lancets 28 gauge (OneTouch #25 ea 10/31/18 06/16/24 History [employer] Lancing Devices) lisinopril 20 mg tablet 20 mg PO QAM #90 tabs 10/31/18 09/08/24 History potassium citrate 10 mEq (1,080 20 meq PO TID 10/31/18 09/08/24 History mg) tablet,extended release metoprolol succinate 25 mg 12.5 mg (1/2 x 25 mg) PO QAM #30 05/23/19 09/08/24 Rx tablet,extended release 24 hr tabs pen needle, diabetic 32 gauge x #400 ea 05/26/20 06/16/24 Rx 5/32" (BD Ultra-Fine Marilyn Pen Needle) allopurinol 100 mg tablet 100 mg PO QAM 05/06/22 09/08/24 History atorvastatin 80 mg tablet 80 mg PO QPM 05/06/22 09/08/24 History acetaminophen 325 mg capsule 650 mg (2 x 325 mg) PO Q6H PRN 05/07/22 09/08/24 Rx fever or pain #30 caps insulin syringe-needle U-100 1 mL #100 ea 09/13/23 06/16/24 Rx 28 gauge x 1/2" (BD Insulin Syringe Micro-Fine) empagliflozin 25 mg tablet 25 mg PO DAILY #30 tabs 05/22/24 09/08/24 Rx (Jardiance) blood-glucose sensor (FreeStyle 06/16/24 06/16/24 History Gabe 3 Plus Sensor device) amlodipine 10 mg tablet 5 mg PO HS 08/29/24 09/08/24 History insulin aspart (niacinamide) 0 sliding scale dose subcut QPM 09/08/24 09/08/24 History (U-100) 100 unit/mL subcutaneous solution (Fiasp U-100 Insulin) insulin degludec 100 unit/mL (3 0 unit subcut QAM 09/08/24 09/08/24 History mL) subcutaneous pen (Tresiba FlexTouch U-100 insulin) tirzepatide 10 mg/0.5 mL 10 mg subcut WK 09/08/24 09/08/24 History subcutaneous pen injector (Rafat) Past Med/Surg History Problem List Chronic kidney disease Diarrhea due to drug Chest pain Mild nonproliferative diabetic retinopathy associated with type 2 diabetes mellitus Diabetes mellitus type 2 with complications Chronic kidney disease, stage 3b Status post laparoscopic appendectomy Acute appendicitis (Acute) Loss of protective sensation of skin of foot Diabetic peripheral neuropathy associated with type 2 diabetes mellitus Bradycardia Anemia (Acute) HTN (hypertension) (Chronic) Charcot foot due to diabetes mellitus (Chronic) Hyperlipidemia (Chronic) H/O colonoscopy (Chronic) "07/09/2014- adenomatous polyps" Medical History Diabetic peripheral neuropathy associated with type 2 diabetes mellitus HTN (hypertension) Hyperlipidemia Loss of protective sensation of skin of foot Surgical History History of laparoscopic appendectomy (05/06/22) H/O cataract removal with insertion of prosthetic lens H/O skin graft Family History (Updated 08/29/24 @ 11:20 by Domonique Maurer LPN) Mother Myocardial infarction Father Myocardial infarction Sister Myocardial infarction Denies family history of Ovarian cancer Prostate cancer Breast cancer Colorectal cancer Social History (Updated 08/29/24 @ 11:22 by Domonique Maurer LPN) Smoking Status: Never smoker Tobacco Type: Smokeless Tobacco (Dip or Chew) Age Started Using Tobacco: 11; Second Hand Exposure: No; Do You Dip or Chew Tobacco: Yes; Hx Alcohol Use: No Hx Substance Use: No Preferred Language: Malagasy Communication Ability: Effective Visual Impairment: No Limitations Hearing Ability: Normal Photography Sales Associate Required: No Beliefs That Will Affect Care: None marital status: Current Living Situation: Family Current Living Situation Comment: brother and sister in law current occupational status: disabled How many Children do You have: 3 Feels Safe at Home: Yes Diet: diabetic and ideal protein caffeine: No during the past year weight has: decreased > 10 lbs Dental Care, Regularly: No Physical Activity Frequency: 3-4 Times per Week Seatbelt Use: always Sunscreen Use: Yes Assistive Devices: Denture - Upper and Denture - Lower Review of Systems Review of Systems: Per HPI. Physical Exam Physical Exam: General: Alert and oriented, no acute distress, comfortable appearing HEENT: Normocephalic, moist oral mucosa, Cardio: Regular rate and rhythm, Resp: Lungs clear to auscultation b/l, no wheezes or rhonchi, GI: Soft and nontender, nondistended, bowel sounds active Skin: Warm, pink, dry, Results & Data Results & Data Vital Signs (Past 12 Hours) Vital Signs Temp Pulse Resp BP Pulse Ox O2 Del Method 09/08/24 14:31 60 09/08/24 13:16 37.0 C 101 H 19 99/67 L 96 Room Air Supervising Physician Co-Signing Physician Notes I personally examined the patient and verified all baker points of history and exam, discussed case, and agree with decision making with Dr Jimenez chest pain, diarrhea. all started not long after mounjaro dose increase vitals noted nad heent nc at mmm breathing unlabored no acccessory muscles good effort skin no rashes no pallor or icterus neuro no focal deficits chest pain - most likely upper GI from mounjaro ADR BUT, male/age/DM/etc - reasonable to ensure not atypical angina given high risk. trend troponin, stress echo diarrhea - as above elevated creatinine - ?baseline vs mild BRIAN related to diarrhea - follow up otherwise as above Resident Activity Tracking Resident Involvement: Resident Care Provided Care Provided: Adult Hospital Medicine (3) HTN (hypertension) Hypertension type: primary hypertension Qualified Code(s): I10 - Essential (primary) hypertension
[2024-09-08 16:36] LABS: Troponin I High Sensitivity 7.9 pg/ml (0-20)
--- NOTE | 2024-09-08 17:04 | Billing Data ---
Date of Service September 08, 2024 Coding Level of Care Code 32720 INT INP/OBS CARE
[2024-09-08] MEDS ORDERED: POLYETHYLENE (MIRALAX) 17 GM PACK PO PRN (17:25)
[2024-09-08] MEDS ORDERED: ONDANSETRON INJ 2 MG/ML 2 ML VIAL IV PRN (17:25)
[2024-09-08] MEDS ORDERED: MELATONIN 3 MG TAB PO PRN (17:25)
[2024-09-08] MEDS ORDERED: ACETAMINOPHEN 325 MG TAB PO PRN (17:31)
[2024-09-08] MEDS: LACTATED RINGER'S 1,000 ML IV SCH (18:27)
[2024-09-08] MEDS: SUCRALFATE 1 GM/10 ML UDC PO SCH (18:31)
[2024-09-08] MEDS: ASPIRIN 81 MG ECTAB PO SCH (18:31)
[2024-09-08] MEDS: PANTOprazole 40 MG/10 ML SYR IV SCH (20:33)
[2024-09-08] MEDS: FAMOTIDINE 20 MG TAB PO SCH (20:36)
[2024-09-08] MEDS: HEPARIN SOD 5,000 UNIT/0.5 ML VIAL SQ SCH (20:36)
[2024-09-08] MEDS: POTASSIUM CITRATE 10 MEQ TAB PO SCH (20:38)
[2024-09-08] MEDS: ATORVASTATIN 40 MG TAB PO SCH (20:38)
[2024-09-08] MEDS: amLODIPine BESYLATE 5 MG TAB PO SCH (20:38)
--- NOTE | 2024-09-08 21:51 | Emergency Department Note ---
Impression & Plan Chest pain ED Provider Note NAME: ANTONELLA GILBERT AGE: 59 SEX: Male INFORMANT: Patient ED PROVIDER(S): Roshan Stewart MD CHIEF COMPLAINT: Chest pain PLAN: Disposition: Admitted Outpatient prescription management: none Referral: None MEDICAL DECISION MAKING: Patient present because of chest pain. His blood pressure was mildly low and he was borderline tachycardic. He notes having his hypertensive medications changed recently due to having lower blood pressure. He has not taken any extra medications. Patient does have a history of diabetes and strong family history of coronary disease. His initial ECG was unremarkable. Patient had baseline elevation of his creatinine. Elevated creatinine precludes CT imaging. Total bili was mildly elevated as well. This is consistent with prior. ECG did not show any acute ischemia. Cardiac troponin was negative. Patient's blood pressure did improve without direct intervention. Given his risk factors and complaints of exertional chest pain additional management in the hospital was felt to be appropriate. Consultation was made with Dr. Agustin Cerna of the [facility] service. Patient was evaluated in the ER for further management. Care/management discussed with: none Level of care consideration(s): After review of the information above and other included data, I feel the patient requires escalation of care to admission Triage Nursing notes: reviewed and agree them. Vital Signs: reviewed and remarkable for borderline hypotension Additional History obtained from: none Chronic Medical/Social Conditions affecting care: Diabetes Prior/ Outside/ External records reviewed: none Differential Diagnosis: Cardiac ischemia, aortic dissection, pulmonary embolism, pneumothorax, pneumonia, pericarditis, myocarditis, esophageal rupture, GERD, cholecystitis, pancreatitis, musculoskeletal, as well as other pathologies. Diagnostics, independently interpreted by me: EC-lead ECG reveals sinus rhythm first-degree AV block and nonspecific ST with prolonged QT at [address] elevation. Cardiac Monitoring: Cardiac monitoring ordered by me: The patient was placed on continuous cardiac monitoring and observed. It revealed a sinus rhythm at 60 beats per minute without ectopy or evidence of dysrhythmia. Medical decision rules: Patient is at moderate risk by HEART SCORE. Imaging studies: Chest x-ray. Findings: A chest x-ray was performed and revealed no pneumothorax, effusion, infiltrate, pulmonary edema, free air under the diaphragm, or wide mediastinum. Impression: No acute disease. HPI: 59 year old Male arrives for evaluation of chest pain. This started about a week ago and is exertional. The patient also notes the following associated symptoms, feeling lightheaded and dizzy over the last few days. The patient has noted rest as relieving factors. Current pain is rated as 4/10. Patient notes today he developed anterior chest wall discomfort as well. He notes about a month ago he had his hydrochlorothiazide medication removed and then just over the last 2 weeks he had his amlodipine cut in half. Patient denied any flulike symptoms. He did have some shortness of breath. Pt denies LOC, headache, fevers, chills, diaphoresis, visual changes, neck pain, leg swelling, nausea, vomiting, abdominal pain, back pain, melena, hematochezia, urinary symptoms, numbness, weakness, lymphadenopathy, rash, or other complaints.. PAST MEDICAL HISTORY: See Below, diabetes, hypertension PAST SURGICAL HISTORY: See Below, SOCIAL HISTORY: See Below, uses tobacco FAMILY HISTORY: CAD HOME MEDICATIONS: See below ALLERGIES: See Below VITALS: See Below PHYSICAL EXAMINATION: GENERAL: Awake, alert, well-appearing, in no distress HENT: Normocephalic, atraumatic. Oropharynx unremarkable. EYES: Normal conjunctiva. Sclera non-icteric. NECK: Inspection normal. Non-tender. Supple. No nuchal rigidity. FROM. No masses. RESPIRATORY: Clear to auscultation. No wheezes. No rales. Normal respiratory effort. CARDIAC: Normal rate. Normal rhythm. No murmurs. No rubs. Extremities warm and well perfused. Pulses equal. No JVD. GI: Soft, non-distended. No tenderness to palpation. No rebound or guarding. No masses. RECTAL: Deferred. MUSCULOSKELETAL: Atraumatic. Chest examination reveals parasternal costal margin tenderness. The back is symmetrical on inspection without obvious abnormality. There is no CVA tenderness to palpation. No joint edema. LOWER EXTREMITIES: Calves are equal size bilaterally and non-tender. No edema. No discoloration. NEURO: Normal sensorium. No sensory or motor deficits noted. SKIN: No rash or jaundice noted. PROCEDURES: none CRITICAL CARE: none OBSERVATION NOTE: none Past Med/Surg History Problem List Chest pain (Acute) Chronic kidney disease Diarrhea due to drug Chest pain Mild nonproliferative diabetic retinopathy associated with type 2 diabetes mellitus Diabetes mellitus type 2 with complications Chronic kidney disease, stage 3b Status post laparoscopic appendectomy Acute appendicitis (Acute) Loss of protective sensation of skin of foot Diabetic peripheral neuropathy associated with type 2 diabetes mellitus Bradycardia Anemia (Acute) HTN (hypertension) (Chronic) Charcot foot due to diabetes mellitus (Chronic) Hyperlipidemia (Chronic) H/O colonoscopy (Chronic) "07/09/2014- adenomatous polyps" Medical History Diabetic peripheral neuropathy associated with type 2 diabetes mellitus HTN (hypertension) Hyperlipidemia Loss of protective sensation of skin of foot Surgical History History of laparoscopic appendectomy (05/06/22) H/O cataract removal with insertion of prosthetic lens H/O skin graft Family History (Updated 08/29/24 @ 11:20 by Domonique Maurer LPN) Mother Myocardial infarction Father Myocardial infarction Sister Myocardial infarction Denies family history of Ovarian cancer Prostate cancer Breast cancer Colorectal cancer Social History (Updated 08/29/24 @ 11:22 by Domonique Maurer LPN) Smoking Status: Never smoker Tobacco Type: Smokeless Tobacco (Dip or Chew) Age Started Using Tobacco: 11; Second Hand Exposure: No; Do You Dip or Chew Tobacco: Yes; Hx Alcohol Use: Yes Alcohol type: beer, wine and hard liquor Hx Substance Use: No Preferred Language: Sammarinese Communication Ability: Effective Visual Impairment: No Limitations Hearing Ability: Normal Esthetician/Spa Coordinator Required: No Beliefs That Will Affect Care: None marital status: Current Living Situation: Family Current Living Situation Comment: Brother and Sister in Law current occupational status: disabled How many Children do You have: 3 Feels Safe at Home: Yes Diet: diabetic and ideal protein caffeine: No during the past year weight has: decreased > 10 lbs Dental Care, Regularly: No Physical Activity Frequency: 3-4 Times per Week Seatbelt Use: always Sunscreen Use: Yes Assistive Devices: Denture - Upper and Denture - Lower Allergies Allergies Allergy/AdvReac Type Severity Reaction Status Date / Time No Known Allergies Allergy Verified 09/08/24 15:27 Home Meds Home Medications Medication Instructions Recorded Confirmed aspirin 81 mg tablet,delayed 81 mg PO Q2D 10/31/18 09/08/24 release cholecalciferol (vitamin D3) 50 2,000 units PO QAM #30 caps 10/31/18 09/08/24 mcg (2,000 unit) capsule lancets 28 gauge (OneTouch #25 ea 10/31/18 06/16/24 [employer] Lancing Devices) lisinopril 20 mg tablet 20 mg PO QAM #90 tabs 10/31/18 09/08/24 potassium citrate 10 mEq (1,080 20 meq PO TID 10/31/18 09/08/24 mg) tablet,extended release allopurinol 100 mg tablet 100 mg PO QAM 05/06/22 09/08/24 atorvastatin 80 mg tablet 80 mg PO QPM 05/06/22 09/08/24 blood-glucose sensor (FreeStyle 06/16/24 06/16/24 Gabe 3 Plus Sensor device) amlodipine 10 mg tablet 5 mg PO HS 08/29/24 09/08/24 insulin aspart (niacinamide) 0 sliding scale dose subcut QPM 09/08/24 09/08/24 (U-100) 100 unit/mL subcutaneous solution (Fiasp U-100 Insulin) insulin degludec 100 unit/mL (3 0 unit subcut QAM 09/08/24 09/08/24 mL) subcutaneous pen (Tresiba FlexTouch U-100 insulin) tirzepatide 10 mg/0.5 mL 10 mg subcut WK 09/08/24 09/08/24 subcutaneous pen injector (Rafat) Previous Rx's Medication Instructions Recorded metoprolol succinate 25 mg 12.5 mg (1/2 x 25 mg) PO QAM #30 05/23/19 tablet,extended release 24 hr tabs pen needle, diabetic 32 gauge x #400 ea 05/26/20 5/32" (BD Ultra-Fine Marilyn Pen Needle) acetaminophen 325 mg capsule 650 mg (2 x 325 mg) PO Q6H PRN 05/07/22 fever or pain #30 caps insulin syringe-needle U-100 1 mL #100 ea 09/13/23 28 gauge x 1/2" (BD Insulin Syringe Micro-Fine) empagliflozin 25 mg tablet 25 mg PO DAILY #30 tabs 05/22/24 (Jardiance) Results & Data (ED) Vital Signs Vital Signs - 24 hr 09/08/24 13:16 09/08/24 14:09 09/08/24 14:31 Temperature 37.0 C Temperature Source Temporal Artery Scan Pulse Rate 101 H 60 Pulse Rate [Finger] 70 Pulse Rhythm [Finger] Regular Pulse Strength [Finger] Normal Respiratory Rate 19 18 Respiratory Effort / Characteristics Non-Labored Spontaneous Non-Labored Respiratory Depth Normal Normal Respiratory Pattern Regular Regular Blood Pressure 99/67 L Blood Pressure [Left Arm] 117/72 Blood Pressure Mean 77 Blood Pressure Mean [Left Arm] 87 Pulse Oximetry 96 99 Oxygen Delivery Method Room Air Room Air Sepsis Recent Fever Within 48 Hours No Sepsis New/Unexplained Change in Mental Status N/A Sepsis Action Taken by Nursing No Action Required Laboratory Data 09/08/24 13:25 09/08/24 13: Lab Results 09/08/24 09/08/24 Range/Units 13: 15:46 WBC 6.27 (4.8-10.8) K/ul RBC 4.17 L (4.70-6.10) M/uL Hgb 12.7 L (14.0-18.0) g/dl Hct 36.7 L (42.0-52.0) % MCV 88.0 (80.0-100.0) fL MCH 30.5 (25.0-34.0) pg MCHC 34.6 (32.0-36.0) g/dL RDW Std Deviation 41.6 (36.4-46.3) fL RDW Coeff of Sebastián 13.2 (11.5-14.5) % Plt Count 217 (130-400) K/uL MPV 10.3 (9.4-12.4) fL Immature Gran % (Auto) 0.3 % Neut % (Auto) 62.3 % Lymph % (Auto) 25.7 % [place] % (Auto) 6.9 % Eos % (Auto) 4.0 % Baso % (Auto) 0.8 % Neut # (Auto) 3.91 (1.40-6.50) K/uL Lymph # (Auto) 1.61 (1.20-3.40) K/uL [place] # (Auto) 0.43 (0.11-0.59) K/uL Eos # (Auto) 0.25 (0.00-0.50) K/uL Baso # (Auto) 0.05 (0.00-0.20) K/uL Immature Gran # (Auto) 0.02 (0.01-0.20) K/uL PT 11.0 (9.0-12.0) Seconds INR 1.0 (0.9-1.1) APTT 28 (21-31) Seconds PTT Ratio 1.0 Sodium 141 (136-145) mmol/L Potassium 4.2 (3.5-5.1) mmol/L Chloride 109 H (98-107) mmol/L Carbon Dioxide 24 (21-32) mmol/L Anion Gap 8 (3-11) BUN 26 H (6-23) mg/dl Creatinine 2.35 H (0.6-1.4) mg/dl Est Cr Clr Drug Dosing 38.0 ml/min eGFR 30.71 BUN/Creatinine Ratio 11.1 (10-20) Glucose 111 H (70-99(Fasting)) mg/dl Calcium 9.5 (8.6-10.3) mg/dl Total Bilirubin 1.8 H (0.2-1.0) mg/dl AST 25 (13-39) U/L ALT 26 (7-52) U/L Alkaline Phosphatase 73 (34-104) U/L Troponin I High Sens 7.3 7.9 (0-20) pg/ml Total Protein 7.2 (6.0-8.3) gm/dl Albumin 4.2 (3.4-5.0) gm/dl Globulin 3.0 (2.5-4.0) gm/dl Albumin/Globulin Ratio 1.4 (0.9-2) Lipase 59 (11-82) U/L Administered Medications Amlodipine Besylate (Amlodipine Besylate 5 Mg Tab) 5 mg PO HS LOS Stop: 10/08/24 20:59 Last Admin: 09/08/24 20:38 Dose: 5 mg Documented By: KASSI Aspirin (Aspirin 81 Mg Ectab) 81 mg PO Q2D LOS Stop: 10/08/24 17:24 Last Admin: 09/08/24 18:31 Dose: 81 mg Documented By: RRR Atorvastatin Calcium (Atorvastatin 40 Mg Tab) 80 mg PO QPM LOS Stop: 10/08/24 20:59 Last Admin: 09/08/24 20:38 Dose: 80 mg Documented By: KASSI Famotidine (Famotidine 20 Mg Tab) 20 mg PO BID LOS Stop: 10/08/24 20:59 Last Admin: 09/08/24 20:36 Dose: 20 mg Documented By: KASSI Heparin Sodium (Porcine) (Heparin Sod 5,000 Unit/0.5 Ml Vial) 5,000 units SQ Q12 LOS Stop: 10/08/24 20:59 Last Admin: 09/08/24 20:36 Dose: 5,000 units Documented By: KASSI Pantoprazole Sodium (Protonix) 40 mg in 10 mls @ 5 mls/min IV BID LOS Stop: 10/08/24 20:59 Last Admin: 09/08/24 20:33 Dose: 5 mls/min Documented By: KASSI Lactated Ringer's (Lr) 1,000 mls @ 100 mls/hr IV .Q10H LOS Stop: 09/09/24 03:24 Last Admin: 09/08/24 18:27 Dose: 100 mls/hr Documented By: FARHAT Potassium Citrate (Potassium Citrate 10 Meq Tab) 20 meq PO TID LOS Stop: 10/08/24 20:59 Last Admin: 09/08/24 20:38 Dose: 20 meq Documented By: KASSI Sucralfate (Sucralfate 1 Gm/10 Ml Udc) 1 gm PO QID LOS Stop: 10/08/24 17:24 Last Admin: 09/08/24 20:38 Dose: 1 gm Documented By: Admin: 09/08/24 18:31 Dose: 1 gm Documented By: RRR Discontinued Medications Sodium Chloride (Nss) 500 mls @ 999 mls/hr IV .Q31M ONE Stop: 09/08/24 15:10 Last Infusion: 09/08/24 15:38 Dose: Infused Documented By: Admin: 09/08/24 15:07 Dose: 999 mls/hr Documented By: JUSTIN Imaging Data Radiologist's Impression: Chest X-Ray 09/08/24 13:21 XR chest 1V not portable CLINICAL HISTORY: Chest pain, nonspecific COMPARISON STUDY: 01/24/2019 FINDINGS: Heart size and pulmonary vasculature are normal. No effusion, consolidation, or pneumothorax. IMPRESSION: No acute findings. ACT 112: Negative or not required by law. Electronically signed by: Brando Baumann M.D. 09/08/2024 1:52 PM Discharge Plan Visit Data Chief Complaint: Chest Pain Stated Complaint: CHEST PAIN, HARD TIME BREATHING ED Provider: Roshan Stewart Discharge Problem: Chest pain Patient Disposition: Admitted As Inpatient Condition: Good Discharge Instructions Interventions: ED Discharge Assessment Last Done: 09/08/24 17:06
--- NOTE | 2024-09-09 01:10 | Ultrasound Report ---
EXAM: US venous doppler LE BI CLINICAL HISTORY: chest and leg pains, elevated Creatinine TECHNIQUE: Grayscale ultrasound, with and without compression, and color Doppler spectral waveform analysis were performed of the deep veins of the bilateral lower extremities from the level of the common femoral veins to the level of the popliteal veins. The posterior tibial and peroneal veins were also scanned. COMPARISON: none. FINDINGS: Bilateral external iliac, common femoral veins, superficial and femoral veins and popliteal veins are compressible and opacify at color Doppler evaluation with no evidence of deep vein thrombosis. There is no evidence of DVT in the visualized portions of the posterior tibial and peroneal veins. IMPRESSION: 1. Negative for deep vein thrombosis. Electronically signed by Akash Jennings 09-09-2024 01:10 AM
[2024-09-09 06:40] LABS: Basophils # (auto) 0.07 K/uL (0.00-0.20); Basophils % (auto) 1.1 %; Eosinophils % (auto) 6.2 %; Hemoglobin 10.8 g/dl (14.0-18.0); Immature Granulocytes # (auto) 0.01 K/uL (0.01-0.20); Immature Granulocytes % (auto) 0.2 %; Lymphocytes # (auto) 2.88 K/uL (1.20-3.40); Lymphocytes % (auto) 44.9 %; Mean Corpuscular Hemoglobin 30.4 pg (25.0-34.0); Mean Corpuscular Hgb Conc 34.8 g/dL (32.0-36.0); Mean Corpuscular Volume 87.3 fL (80.0-100.0); Mean Platelet Volume 10.5 fL (9.4-12.4); Monocytes # (auto) 0.65 K/uL (0.11-0.59); Monocytes % (auto) 10.1 %; Neutrophils # (auto) 2.41 K/uL (1.40-6.50); Neutrophils % (auto) 37.5 %; Platelet Count 174 K/uL (130-400); RDW Coefficient of Variation 13.1 % (11.5-14.5); RDW Standard Deviation 41.1 fL (36.4-46.3); Red Blood Count 3.55 M/uL (4.70-6.10); White Blood Count 6.42 K/ul (4.8-10.8)
[2024-09-09 07:06] LABS: Albumin Globulin Ratio 1.6 (0.9-2); BUN Creatinine Ratio 13.2 (10-20); Bilirubin,Total 1.9 mg/dl (0.2-1.0); Calcium 8.7 mg/dl (8.6-10.3); Creatinine Clr Calc Pharmacy 50.2 ml/min; Globulin 2.3 gm/dl (2.5-4.0); Potassium 4.1 mmol/L (3.5-5.1)
[2024-09-09 07:39] VITALS: RESP 16
[2024-09-09] MEDS: METOPROLOL SUCC 25MG EXT REL TAB PO SCH (08:24)
[2024-09-09] MEDS: allopurinoL 100 MG TAB PO SCH (08:25)
[2024-09-09 11:55] VITALS: BP 136/69; TEMP 97.5; O2SAT 98
--- NOTE | 2024-09-09 11:58 | Electrocardiogram Report ---
Test Reason : Blood Pressure : */* mmHG Vent. Rate : 95 BPM Atrial Rate : 95 BPM P-R Int : 298 ms QRS Dur : 90 ms QT Int : 368 ms P-R-T Axes : 76 -25 55 degrees QTcB Int : 462 ms Sinus rhythm with 1st degree A-V block Nonspecific T wave abnormality Prolonged QT Abnormal ECG When compared with ECG of 19-Sep-2020 19:07, Premature supraventricular complexes are no longer Present Vent. rate has increased by 43 bpm Nonspecific T wave abnormality now evident in Inferior leads Confirmed by David Dent ([id number]) on 09/09/2024 11:58:09 AM Referred By: Confirmed By: David Dent
--- NOTE | 2024-09-09 12:56 | XCELERA ---
[id number] \\[id number]
[2024-09-09 14:47] VITALS: PULSE 80
--- NOTE | 2024-09-09 18:45 | Discharge Summary ---
Discharge Summary Date of Service September 09, 2024 Principal Dx & Hospital Course #1 = Principal Diagnosis (1) Chest pain: he has hx of type 2 diabetes, CKD, tobacco use disorder he was having chest pain episode and under observation for CAD evaluation his exercise stress test is negative, started on PPI for GERD his chest pain resolved and was dc home on 09/09/2024 we discussed that if his chest pain developed again he will need to return to ED for medical evaluation (2) Diabetes mellitus type 2 with complications: (3) HTN (hypertension): (4) Diarrhea due to drug: (5) Chronic kidney disease: Plan Pt is a 59 yo male with a past medical hx of DMT2 with CKD, HTN, HLD, and hx gout who presents to the hospital on 09/08 for chest pain. 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 - CXR neg, initial trop negative, repeat pending - given episodes are with activity and hx of angina in the past will do cardiac workup, but question of mounjaro may be contributing - will do stress echo - will also treat with protonix, pepcid, and carafate - lipase pending #Orthostatic hypotension - suspected given pt compliant of lightheadedness on position change in the setting of continual diarrhea for 3 weeks to be related to volume depletion - will do orthostatics in the am after fluid repletion #Diarrhea - ongoing for 3-4 weeks - does happen to coincide with increase in mounjaro dose from 7.5->10 mg per pt - would hold this medication given the copious diarrhea described while here in the hospital (Next scheduled dose would be 09/09), consider reducing or stopping on discharge - defer stool PCR testing unless symptoms worsen or there are other signs of infection, but no WBC count or fever on admission #DMT2 - pt states he has not needed to take his insulin since being on mounjaro - last HA1c 08/29/24; 6.8%, controlled - will defer insulin on admission since pt reports infrequent use at home but could consider adding regime if sugars are elevated #CKD - no clear baseline as his records mostly with [facility], but suspect around 2.0 - Cr on admission 2.35, similar to end of July Cr - given 1 L bolus by the ER, will encourage po and do LR 100/hr for 1 bag - hold home lisinopril pending am labs VTE ppx: heparin given significant CKD Diet: DMT2 with ACHS sugar checks Notes For Next Care Provider referral to cardiology for stress test consider switching lipitor to crestor for better cardiac protection trend h/h on protonix Admission HPI Per Admitting Provider Pt is a 59 yo male with a past medical hx of DMT2 with CKD, HTN, HLD, and hx gout who presents to the hospital on 09/08 for chest pain. Pt states he had an episode of chest pain last week on when he was doing work in his garage. He states that the episode went away when he sat for awhile. He states he had a few minor episodes since then and then today he was trimming the hedges of his yard and another episode started and has been persistent, prompting him to come into the hospital for further eval. He denies hx MT/CVA but has had a cath in 2019 which was wnl for chest pain symptoms. He denies SOB. No nausea or vomiting. No syncope but does notice some lightheadedness when initially going from sitting to standing position that goes away a bit after. He does state that over the last 3 weeks he has had daily watery diarrhea, mostly in the evenings, 5-6 episodes of nonbloody watery diarrhea. He does note that he is on mounjaro and his dose was increased to 10 mg about 1 mo ago. He states he takes his dose on Tuesdays so would be due for one tomorrow. He does get some mild abdominal cramps but these are very sporadic. He states that he drinks city water that he uses a filter on, has not drank water from a stream/outdoors recently, no one else in the household has diarrhea, no fevers with this. He does state he had a esophageal issue and states that he had a dilation of his esophagus about 3 weeks ago as well, swallowing has been okay since. He states he had a burger get stuck in his esophagus recently leading to this EGD. The EGD was done with Donnie per pt. Discharge Exam VITALS: Reviewed. WEIGHT/BMI reviewed. GEN: Healthy appearing, well-developed, NAD. PSYCH: Good Judgment. AOx3. Normal memory, mood, and affect. HEENT -Head: NC/AT; -Eyes: PERRL, EOMI. No discharge or redness; -Ears: External ears are normal. Normal TMs. -Nose: Normal nares. -Mouth and throat: MMM. Normal gums, mucosa, palate,. Good dentition. NECK: Supple, with no masses. CV: RRR, no m/r/g. LUNGS: CTAB, no w/r/c. ABD: Soft, NT/ND, NBS, no masses or organomegaly. : N/A SKIN: Warm, well perfused. No skin rashes or abnormal lesions. MSK: No deformities, Normal gait. EXT: No clubbing, cyanosis, or edema. NEURO: Ambulating with no limitations. Normal muscle strength and tone. No focal deficits. Discharge Plan Discharge Items Patient Disposition: Home - Self-Care Reason For Visit: CHEST PAIN Discharge Diagnosis: chest pain episode hx of smoking Condition on Discharge: Good Activity: Per Instructions section Non-emergency contact: Primary Care Provider and Associate Call non-emergency contact if: your symptoms worsen Follow-up/Referrals: Milan Alcazar DO [Primary Care Provider] - 09/22/24 11:00 am Diet: Carb Consistent or DM2, Heart Healthy, Low Fiber and Low Sodium (2gm) Addtl Attending Provider Instructions: follow up with cardiology low fat diet Pending Studies at Discharge: Yes Studies:: repeat kidney function in 10-14 days Stand-Alone Forms: [employer], Smoking Cessation Medications and DC Order Prescriptions: Continued (DME) pen needle, diabetic [BD Ultra-Fine Marilyn Pen Needle] 32 gauge x 5/32" needle See Dose Instructions [id number] .MEDSUPPLY Qty: 400 3RF Dose Instruction: As directed Rx Instructions: As directed; use with Novolog and Tresiba pens 4 times a day (DME) insulin syringe-needle U-100 [BD Insulin Syringe Micro-Fine] 1 mL 28 gauge x 1/2" syringe See Rx Instructions .Route Qty: 100 5RF Rx Instructions: use a new syringe with each insulin injection, up to 3 times a day Jardiance 25 mg tablet 25 mg PO DAILY Qty: 30 5RF Rx Instructions: Take one tablet by mouth once daily. aspirin 81 mg tablet,delayed release (DR/EC) 81 mg PO Q2D lisinopril 20 mg tablet 20 mg PO QAM Qty: 90 (DME) lancets [OneTouch SureSoft Lancing Dev] 28 gauge misc See Dose Instructions .ROUTE .MEDSUPPLY Qty: 25 Rx Instructions: Check 4x a day potassium citrate 10 mEq (1,080 mg) tablet extended release 20 meq PO TID Rx Instructions: TAKE TWO TABLETS THREE TIMES DAILY cholecalciferol (vitamin D3) 2,000 unit capsule 2,000 units PO QAM Qty: 30 (DME) FreeStyle Gabe 3 Plus Sensor Device See Rx Instructions .ROUTE Rx Instructions: As directed amlodipine 10 mg tablet 5 mg PO HS metoprolol succinate 25 mg Tablet Extended Release 24 Hr 12.5 mg PO QAM Qty: 30 2RF atorvastatin 80 mg tablet 80 mg PO QPM allopurinol 100 mg tablet 100 mg PO QAM acetaminophen 325 mg capsule 650 mg PO Q6H PRN (Reason: fever or pain) Qty: 30 0RF insulin degludec [Tresiba FlexTouch U-100] 100 unit/mL (3 mL) insulin pen 0 unit subcut QAM Rx Instructions: PER PT "SLIDING SCALE, DON'T TAKE VERY OFTEN". Fiasp U-100 Insulin 100 unit/mL solution 0 sliding scale dose subcut QPM Rx Instructions: PER PT "SLIDING SCALE FOR DOSE, DON'T TAKE VERY OFTEN". Held Mounjaro 10 mg/0.5 mL pen injector 10 mg subcut WK Hold Instructions: Resume on 09/24/24. discuss with your PCP about whether Mounjaro is causing your diarrhea Rx Instructions: TUESDAYS Discharge Orders: Discharge Order (Routine); Ordered 09/09/24 Ordered By: Pee Jarvis/Other Patient Handouts: Low-Fat Cooking Tips, ED Diet, Low Fat Admission Data Admit Date/Time: 09/08/24 15:58 Attending Provider: Pee Goode Admit Provider: Linda Jimenez Primary Care Provider: Milan Alcazar Other Providers: Agustin Weiss Other Interventions: Discharge Summary Assessment (RN) Last Done: 09/09/24 14:46 Hospital Stay Data Consultations 09/08/24 16:42 ED Decision to Admit Stat Diagnostic Imagining Performed 09/08/24 14:40 US venous doppler LE BI Stat Pending Results Patient Have Any Pending Studies at Discharge: Yes Discharge Instructions Given to Patient (Per Discharging Provider) follow up with cardiology low fat diet Total Time Total Time Spent Total Time Spent (In Minutes): 35 Coding Level of Care Code 33650 INP/OBS DISCH >30 MIN Diagnoses Chest pain R07.9 Diabetes mellitus type 2 with complications E11.8 Primary hypertension I10 Hypertension type: primary hypertension Diarrhea due to drug K52.1 Chronic kidney disease N18.9 Time Spent (min) 35
== END 2024-09-09 16:09 | disposition home or self-care (01) | DRG 313 ==
LOC: ED 13:13 → SUATTDRO 15:58 → 2N 15:58 → INTOOBSV 15:58 → 2N 17:06